=== PATIENT | male | born 1960 | race African-American/Black ===

== ENCOUNTER 2021-10-22 10:58 | Emergency (ER) | payer SELFPAY ==
--- NOTE | ~2021-10-22 | CT_ITS ---
EXAMINATION: CT HEAD WITHOUT CONTRAST CT CERVICAL SPINE WITHOUT CONTRAST CLINICAL INFORMATION: Reason for Exam Neck pain after a fall COMPARISON: None. TECHNIQUE: Imaging was performed from the skull base to vertex without intravenous administration of contrast. In addition, helical noncontrast CT imaging was acquired through the cervical spine and source images were reviewed along with axial reconstructions and sagittal and coronal MPRs. This CT examination was performed using dose optimization techniques as appropriate, variously including the following: *Automated exposure control. *Adjustment of mA and/or kV according to patient size (this includes techniques or standardized protocols for targeted exams where dose is matched to indication/reason for exam; i.e. extremities or head). *Use of iterative reconstruction technique. Total exam dose-length product 654 mGy-cm FINDINGS: HEAD: Linear hypodensity is noted within the inferior basal aspect of the left frontal lobe without evidence of any mass effect, most consistent with encephalomalacia. Please correlate clinically if this patient has a history of remote trauma. There are no prior studies available at the moment for comparison. No intracranial mass, hemorrhage, or midline shift is visualized. The ventricles and sulci are unremarkable. No extra-axial collections are identified. The paranasal sinuses and mastoid air cells are well aerated. CERVICAL SPINE: Specific note is made of right paramedian anterior arch fusion defect (104:11). There is straightening of the cervical spine present with [id number] degenerative spondylosis at C6-C7. Subcentimeter radiolucent lesion is identified within the posterior superior right side of C5 vertebral body, of indeterminate etiology. There is no evidence of acute cervical spine fracture. Vertebral bodies remain normal in height, and alignment is anatomic. No prevertebral or paravertebral soft tissue abnormality is identified. Limited assessment of the lung apices is unremarkable. CT/CT cervical spine wo con IMPRESSION: 1. No acute intracranial pathology. Linear hypodensity within the inferior basal aspect of the left frontal lobe without evidence of any mass effect, most consistent with encephalomalacia. Please correlate clinically if this patient has a history of remote trauma. There are no prior studies available at the moment for comparison. 2. No CT evidence of acute cervical spine fracture or traumatic subluxation.Specific note is made of right paramedian anterior arch fusion defect (104:11). There is straightening of the cervical spine present with [id number] degenerative spondylosis at C6-C7. Subcentimeter radiolucent lesion is identified within the posterior superior right side of C5 vertebral body, of indeterminate etiology. No prior studies available for comparison.
--- NOTE | ~2021-10-22 | CT_ITS ---
EXAMINATION: CT HEAD WITHOUT CONTRAST CT CERVICAL SPINE WITHOUT CONTRAST CLINICAL INFORMATION: Reason for Exam Neck pain after a fall COMPARISON: None. TECHNIQUE: Imaging was performed from the skull base to vertex without intravenous administration of contrast. In addition, helical noncontrast CT imaging was acquired through the cervical spine and source images were reviewed along with axial reconstructions and sagittal and coronal MPRs. This CT examination was performed using dose optimization techniques as appropriate, variously including the following: *Automated exposure control. *Adjustment of mA and/or kV according to patient size (this includes techniques or standardized protocols for targeted exams where dose is matched to indication/reason for exam; i.e. extremities or head). *Use of iterative reconstruction technique. Total exam dose-length product 654 mGy-cm FINDINGS: HEAD: Linear hypodensity is noted within the inferior basal aspect of the left frontal lobe without evidence of any mass effect, most consistent with encephalomalacia. Please correlate clinically if this patient has a history of remote trauma. There are no prior studies available at the moment for comparison. No intracranial mass, hemorrhage, or midline shift is visualized. The ventricles and sulci are unremarkable. No extra-axial collections are identified. The paranasal sinuses and mastoid air cells are well aerated. CERVICAL SPINE: Specific note is made of right paramedian anterior arch fusion defect (104:11). There is straightening of the cervical spine present with [id number] degenerative spondylosis at C6-C7. Subcentimeter radiolucent lesion is identified within the posterior superior right side of C5 vertebral body, of indeterminate etiology. There is no evidence of acute cervical spine fracture. Vertebral bodies remain normal in height, and alignment is anatomic. No prevertebral or paravertebral soft tissue abnormality is identified. Limited assessment of the lung apices is unremarkable. CT/CT head/brain wo con IMPRESSION: 1. No acute intracranial pathology. Linear hypodensity within the inferior basal aspect of the left frontal lobe without evidence of any mass effect, most consistent with encephalomalacia. Please correlate clinically if this patient has a history of remote trauma. There are no prior studies available at the moment for comparison. 2. No CT evidence of acute cervical spine fracture or traumatic subluxation.Specific note is made of right paramedian anterior arch fusion defect (104:11). There is straightening of the cervical spine present with [id number] degenerative spondylosis at C6-C7. Subcentimeter radiolucent lesion is identified within the posterior superior right side of C5 vertebral body, of indeterminate etiology. No prior studies available for comparison.
[2021-10-22 11:17] VITALS: BP 174/91; PULSE 67; RESP 18; TEMP 36.8; O2SAT 99; BMI 42.6
[2021-10-22 12:38] VITALS: BP 155/92; PULSE 57; RESP 18; TEMP 36.8
--- NOTE | 2021-10-22 13:54 | ED_ITS ---
HPI - Fall General Chief Complaint: Fall Stated Complaint: fall/sent from urgent care Time Seen by Provider: 10/22/21 12:00 History of Present Illness HPI Narrative: Patient complains of headache and neck pain and low back pain after a fall on the ice at work on Saturday There is no loss of consciousness, there is no dizziness no weakness no retrograde amnesia no nausea no vomiting no vision changes no numbness weakness or tingling no difficulty with bowel or bladder no difficulty ambulating Related Data Previous Rx's Medication Instructions Recorded naproxen 500 mg tablet (Naprosyn) 500 mg PO BID PRN #14 tab 10/22/21 oxycodone-acetaminophen 5 mg-325 1 tab PO Q6H PRN #10 tab 10/22/21 mg tablet (Percocet) cyclobenzaprine 10 mg tablet 10 mg PO Q8H PRN #14 tab 10/24/21 Allergies Allergy/AdvReac Type Severity Reaction Status Date / Time No Known Allergies Allergy Verified 10/24/21 10:07 [No Known Allergies*] Review of Systems Review of Systems: Positive for headache neck pain and back pain Negatives are no fever no chills no dizziness or weakness no fainting no feeling faint no loss of consciousness no retrograde amnesia no vision change no nausea no vomiting no numbness weakness or tingling no chest pain no shortness of breath no abdominal pain no nausea vomiting or diarrhea no extremity pains Yes all other systems are reviewed and are negative PMFSH Past Medical History Source: nursing notes reviewed Medical History No known health problems Social History Social History Advance Directives: No Advance Directives Information Provided: No Physical Exam Vital Signs: Vital Signs: Last Vital Signs Temp 98.2 F 10/22/21 12:38 Pulse 57 10/22/21 12:38 Resp 18 10/22/21 12:38 BP 155/92 H 10/22/21 12:38 Pulse Ox 99 10/22/21 11:17 BMI result Body Mass Index 42.6 General appearance is no acute distress Head is normocephalic atraumatic Pupils equal round reactive to light extraocular motions are intact Neck has diffuse posterior tenderness and range of motion is somewhat restricted by pain chest is clear to auscultation bilateral, there is no chest wall tend erness Heart no murmur Abdomen soft nontender Extremities full range of motion x4 without swelling or deformity Skin no lacerations The back there is mild paraspinal tenderness bilaterally in the lower back there is no focal bony tenderness, range of motion is full, no CVA tenderness Neuro there is no focal motor or sensory deficits, motor is 5/5 x4, sensation intact and symmetrical, gait and balance are normal, interaction comprehension expression are normal Course Course Course Narrative: Patient with main complaint of headache and neck pain after a fall on the ice at work had CT scan of head and neck which were normal no fractures no bleeds His back pain is likely muscle strain there was no tenderness over any bones any add very good range of motion and he is discharged to follow with [facility] as needed Discharge Plan Discharge Clinical Impression: Neck strain, Concussion, Back strain Patient Disposition: Home, Self-Care Additional Instructions: CT scan of the head and neck did not show any broken bones of the skull or the neck did not show any bleeds no sign of any dangerous new injury Follow with [facility] for further evaluation of work related injury Return to the ER any time any worse condition or any concerns Your blood pressure was elevated in the emergency room so follow with primary doctor for further evaluation for possible high blood pressure It is a good plan to buy a home blood pressure cuff and keep a record to help your doctor decide if you actually have high blood pressure Prescriptions: New oxycodone-acetaminophen [Percocet] 5-325 mg tablet 1 tab PO Q6H PRN (Reason: pain) Qty: 10 0RF Rx Instructions: Narcotic, no driving for 8 hours after taking this medication, may cause drowsiness naproxen [Naprosyn] 500 mg tablet 500 mg PO BID PRN (Reason: pain) Qty: 14 0RF No Action cyclobenzaprine 10 mg tablet 10 mg PO Q8H PRN (Reason: Muscle spasm) Qty: 14 0RF Referrals: [facility] [Provider Group] - 2 days (Follow-up for head neck and back injuries after a fall at work) Stand Alone Forms: Work/School Release Interventions: ED Discharge Assessment Last Done: 10/22/21 14:07 Discharge Date/Time: 10/22/21 14:07
== END 2021-10-22 14:07 | disposition home or self-care (01) ==
PROVIDERS: Emergency Provider Emergency Medicine Emergency Medical Services
DX: S06.0X0A Concussion without loss of consciousness, initial encounter (principal); S16.1XXA Strain of muscle, fascia and tendon at neck level, initial encounter; S39.012A Strain of muscle, fascia and tendon of lower back, initial encounter; W00.0XXA Fall on same level due to ice and snow, initial encounter; Y93.9 Activity, unspecified; Y92.9 Unspecified place or not applicable; Y99.9 Unspecified external cause status; Z79.899 Other long term (current) drug therapy
CPT/HCPCS: 70450; 72125; 99284

== ENCOUNTER 2021-10-24 09:40 | Emergency (ER) | payer SELFPAY ==
--- NOTE | ~2021-10-24 | XR_ITS ---
EXAMINATION: XR HIP, RIGHT CLINICAL INFORMATION: Fall 2 days ago. Hip pain. COMPARISON: None TECHNIQUE: Two views of the right hip and one view of the pelvis. FINDINGS: Bone alignment is normal. No fracture or dislocation is seen. The right hip joint is normal appearing. There is a small soft tissue calcification in the upper medial thigh. Bones of the pelvis and left hip are unremarkable. XR/XR hip RT w PEL1V IMPRESSION: Normal right hip.
--- NOTE | ~2021-10-24 | XR_ITS ---
EXAMINATION: XR LUMBOSACRAL SPINE CLINICAL INFORMATION: Status post fall 2 days ago. Right lower back and hip pain. COMPARISON: None TECHNIQUE: Three views of the lumbosacral spine. FINDINGS: There is normal lumbar lordosis. The vertebral heights, alignment and disc heights are normal. No acute fracture, lytic or sclerotic process seen. Bilateral SI joints are symmetrical and normal. XR/XR lumbar spine 2-3V IMPRESSION: Unremarkable lumbar spine examination.
[2021-10-24 10:09] VITALS: BP 153/98; PULSE 75; RESP 18; TEMP 37.1; O2SAT 98; BMI 38.0
--- NOTE | 2021-10-24 12:43 | ED.BACK ---
HPI - Back Pain/Injury General Chief Complaint: Back Pain/Injury Stated Complaint: sharp pain in lower back Time Seen by Provider: 10/24/21 11:06 Source: patient Mode of arrival: ambulatory Limitations: no limitations History of Present Illness HPI Narrative: 61-year-old male who denies any significant past medical history presenting to the ED with complaints of lower back and right hip pain after he had a mechanical fall on Saturday where he fell on ice at work. He reports that he hit his head although did not lose consciousness and is not on any blood thinners and he was seen here yesterday and had a CT scan of his head and neck which was normal and he initially did not have any lower back pain/right hip pain although he noted yesterday started up and he believes this is from the fall. He denies any paresthesias, hematuria, dysuria, urinary bowel incontinence or retention, rashes, along downtime, history of IV drug use or any other symptoms complaints or concerns at this time. He reports he was given naproxen and oxycodone and is taking as prescribed. MD elicited complaint: back pain, back injury and fall Pertinent past history: recent trauma Onset (ago): day(s) (4) Timing: constant and progressively worsening Severity: moderate Similar Symptoms Previously: No Quality: aching Location: lumbar spine and right lower back Radiation: none Exacerbating factors: movement, supine positioning, sitting upright, walking and lifting Relieving factors: none Context: fall Associated symptoms: denies other symptoms Work related injury: Yes Related Data Previous Rx's Medication Instructions Recorded naproxen 500 mg tablet (Naprosyn) 500 mg PO BID PRN #14 tab 10/22/21 oxycodone-acetaminophen 5 mg-325 1 tab PO Q6H PRN #10 tab 10/22/21 mg tablet (Percocet) cyclobenzaprine 10 mg tablet 10 mg PO Q8H PRN #14 tab 10/24/21 Allergies Allergy/AdvReac Type Severity Reaction Status Date / Time No Known Allergies Allergy Verified 10/24/21 10:07 [No Known Allergies*] Review of Systems Review of Systems: Constitutional : No trauma, No Weight loss, No Fever, No Chills, ENT/Mouth : No Hearing loss, No Ear Pain, No Nasal Congestion, No Sinus Pain, No Hoarseness, No sore throat, No Rhinorrhea, No Swallowing Difficulty Cardiovascular : No Chest Pain, No SOB Respiratory : No Cough, No Dyspnea Gastrointestinal : No Nausea, No Vomiting, No Diarrhea, No abdominal Pain, No Hematochezia, No Melena Genitourinary : No Dysuria, No Urinary Frequency, No Hematuria, No Urinary or Bowel Incontinence/retention Musculoskeletal : + Back pain, + right Hip joint pain, No neck pain, No joint stiffness, No joint swelling Skin : No Skin Lesions, No rash or signs of infection Neuro : No Weakness, No radiation, No Numbness, No Paresthesias, No headache, no loss of bowel or bladder incontinence, no saddle anesthesia, Focal weakness, No radiation Denies history of IV drug usage. Yes all other systems are reviewed and are negative [facility] Past Medical History Attestation statement: The following information was validated with the patient. Medical History No known health problems Social History Social History Advance Directives: No Advance Directives Information Provided: No Physical Exam Vital Signs: Vital Signs: Last Vital Signs Temp 98.7 F 10/24/21 10:09 Pulse 75 10/24/21 10:09 Resp 18 10/24/21 10:09 BP 153/98 H 10/24/21 10:09 Pulse Ox 98 10/24/21 10:09 BMI result Body Mass Index 38.0 vital signs have been reviewed as normal and appeared to be correct. Blood pressure 153/98. Heart rate normal. Respiration rate normal. Temperature normal. Oxygen saturation normal. Appearance: Alert. Oriented X3. No acute distress. Head: Normal external exam. Normocephalic. Atraumatic. No Turner signs noted. No raccoon eyes noted Eyes: PERRLA. EOMI. Conjunctiva and sclera normal. Eyelids normal. ENT: EAC normal. TM's Normal. Pharynx normal. Uvula midline. Moist mucous membranes. No trismus noted. No drooling noted. No muffled voice noted. Neck: Normal inspection. Neck supple. FROM. No adenopathy. Thyroid Normal. No meningeal signs. No neck mass noted. CVS: Normal heart rate and rhythm. Heart sound normal. No murmurs noted. Pulses normal throughout. Respiratory: No respiratory distress. Painless inspiration. Breath sounds normal. No wheezes/rales/rhonchi noted. Chest nontender. No accessory muscle usage noted or decreased air movement noted. Abdomen: Soft and nontender. Bowel sounds normal in all 4 quadrants. No distention noted. No organomegaly noted. No visible injury noted. Back: No CVA tenderness. Full range of motion noted. No obvious deformities, or edema. Mild para-spinal muscular tenderness from lumbar region to coccyx. Full ROM in back and lower extremities. 5/5 strength hip extension/flexion, abduction, adduction. Mild Lumbar pain with hip flexion against resistance. Straight leg raise test negative on right; Straight leg raise test negative on left; Reflexes normal ankle and knee bilaterally; EHL motor strength normal bilaterally. No rashes/lesion/induration/fluctuance or signs infection noted. Skin: Skin warm and dry. Normal skin color. Normal skin turgor. No rashes/lesions/lacerations noted. Extremities: No lower extremity edema. Extremities exhibit normal range of motion. Extremities nontender. Neuro: Oriented X 3. No motor deficit. No sensory deficit. Reflexes normal. Patient has a normal steady gait. Course Course Course Narrative: Pt c likely muscular pain, but could be herniated disc. Neuro exam shows no deficits. Not c/w AAA/epidural abscess/dissection.No high risk Hx (Incont, fever, immunosupp, recent surgery/LP, coag, signif trauma, wt loss, puls mass, hx/o Ca, TB, or IVDU) to warrant MRI/CT today. Not c/w Pyelo/UTI/kidney stone. Not cauda equina syndrome. Although due to patient reporting recent fall/trauma will obtain an x-ray of lumbar spine/right hip if negative will DC home instructions return if any new or worsening symptoms to continue taking his previously prescribed medications as previously prescribed and to follow up with [facility]/PCP and possible referral for physical therapy from [facility] or PCP. Patient understands agrees with this plan. MDM - Back Pain/Injury Medical Records Attestation: I reviewed the patient's medical records. Imaging Data Lumbar spine and right hip x-ray: Attestation: I personally reviewed and interpreted this imaging study as follows: Radiologist's impression: FINDINGS: Bone alignment is normal. No fracture or dislocation is seen. The right hip joint is normal appearing. There is a small soft tissue calcification in the upper medial thigh. Bones of the pelvis and left hip are unremarkable.? XR/XR hip RT w PEL1V IMPRESSION: Normal right hip. FINDINGS: There is normal lumbar lordosis. The vertebral heights, alignment and disc heights are normal. No acute fracture, lytic or sclerotic process seen. Bilateral SI joints are symmetrical and normal. XR/XR lumbar spine 2-3V IMPRESSION: Unremarkable lumbar spine examination. Discharge Plan Discharge Clinical Impression: Fall, Strain of lumbar region, Strain of right hip Patient Disposition: Home, Self-Care Instructions: Muscle Strain (ED), Low Back Strain (ED), Fall Prevention (ED) Prescriptions: New cyclobenzaprine 10 mg tablet 10 mg PO Q8H PRN (Reason: Muscle spasm) Qty: 14 0RF No Action oxycodone-acetaminophen [Percocet] 5-325 mg tablet 1 tab PO Q6H PRN (Reason: pain) Qty: 10 0RF Rx Instructions: Narcotic, no driving for 8 hours after taking this medication, may cause drowsiness naproxen [Naprosyn] 500 mg tablet 500 mg PO BID PRN (Reason: pain) Qty: 14 0RF Referrals: Physician,Unknown J [Primary Care Provider] - 2 days (your pcp) Stand Alone Forms: Work/School Release Print Language: Malay
== END 2021-10-24 14:06 | disposition home or self-care (01) ==
PROVIDERS: Emergency Provider Emergency Medicine
DX: S33.5XXA Sprain of ligaments of lumbar spine, initial encounter (principal); S76.011A Strain of muscle, fascia and tendon of right hip, initial encounter; W00.0XXA Fall on same level due to ice and snow, initial encounter; Y93.9 Activity, unspecified; Y92.9 Unspecified place or not applicable; Y99.0 Civilian activity done for income or pay; Z79.899 Other long term (current) drug therapy
CPT/HCPCS: 72100; 73502; 99283

== ENCOUNTER 2022-03-10 14:25 | Emergency (ER) | payer SELFPAY ==
[2022-03-10 15:20] VITALS: BP 143/70; PULSE 65; RESP 18; TEMP 37.2; O2SAT 97; BMI 39.1
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
== END 2022-03-10 22:16 | disposition home or self-care (01) ==
PROVIDERS: Emergency Provider Emergency Medicine
DX: Z04.1 Encounter for examination and observation following transport accident (principal); M54.9 Dorsalgia, unspecified
CPT/HCPCS: 99282; 99283

== ENCOUNTER 2024-02-24 13:18 | Inpatient (IN) | payer MEDICAID, SELFPAY ==
--- NOTE | ~2024-02-24 | XR_ITS ---
EXAMINATION: XR CHEST CLINICAL INFORMATION: Reason for Exam chest tube placement COMPARISON: Chest radiograph 02/28/2024 TECHNIQUE: One view of the chest FINDINGS: Lines and tubes: Interval placement of a left-sided thoracostomy tube. Interval decrease in a persistent moderate left pleural effusion with similar left basilar consolidation. No pneumothorax. Unchanged cardiomediastinal silhouette. XR/XR chest 1V IMPRESSION: 1. Interval decrease in a persistent moderate left pleural effusion with similar left basilar consolidation. 2. Interval placement of a left-sided thoracostomy tube. No pneumothorax. 3. Unchanged cardiomediastinal silhouette.
--- NOTE | ~2024-02-24 | XR_ITS ---
EXAMINATION: XR CHEST CLINICAL INFORMATION: Status post left thoracentesis. COMPARISON: 02/24/2024 TECHNIQUE: Frontal view of the chest was obtained. FINDINGS: Large left pleural effusion has increased from prior study. There is left basilar consolidation. There is a rounded density within the left upper aerated lung measuring 3.8 cm. The right hemithorax is clear. Cardiac silhouette is obscured. XR/XR chest 1V IMPRESSION: Large left pleural effusion and left basilar consolidation. New rounded density projecting over the left upper lung measuring 3.8 cm. Continued imaging surveillance is advised.
--- NOTE | ~2024-02-24 | XR_ITS ---
EXAMINATION: XR CHEST CLINICAL INFORMATION: Left sided pleural effusion COMPARISON: Chest x-ray February 29, [address] February 28, 2024 TECHNIQUE: Frontal view of the chest was obtained. FINDINGS: Chest tube again noted projecting over the left lung base. Moderate sized left-sided pleural effusion is stable to minimally decreased in volume. There is no gross abnormality of the right lung. No pneumothorax. XR/XR chest 1V IMPRESSION: Moderate left-sided pleural effusion is stable to minimally decreased in volume.
--- NOTE | ~2024-02-24 | US_ITS ---
PROCEDURE: Ultrasound-guided left thoracentesis History: Concern for left parapneumonic effusion. Specimen: A sample of pleural fluid was sent for analysis Access: 5 Brazilian Yueh catheter Medications: 10 mL 1% lidocaine TECHNIQUE/FINDINGS Appropriate preprocedural clinical history and imaging studies were reviewed. The patient was brought to the department and placed in the seated position. Ultrasound images of the left thorax were obtained to localize a small loculated pleural effusion. Permanent ultrasound images were saved. Risks and benefits and possible complications were discussed with the patient and consent form was signed. An area of the patient's left back was prepped and draped in usual sterile fashion. 10 mL of 1% lidocaine was used to obtain local anesthesia of the skin and deeper tissues. A standard small bore needle was introduced to sample pleural fluid and demonstrate a safe access route. A 5 [place] Yueh catheter was then used to access the pleural cavity. 300 ml of jaimie fluid was removed passively. The catheter was then removed. A dressing was applied. A postprocedure chest x-ray will be performed and will be dictated separately. There were no immediate complications. The procedure was performed by Shekhar Rodriguez PA-C and supervised by Dr. Gimenez US/US thoracentesis Impression: Ultrasound-guided left thoracentesis
--- NOTE | ~2024-02-24 | XR_ITS ---
EXAMINATION: XR CHEST CLINICAL INFORMATION: Pain with inspiration COMPARISON: None available. TECHNIQUE: 2 views of the chest were obtained. FINDINGS: There is increased opacity at the left lung base which likely represents a combination of atelectasis, infiltrate and small pleural effusion. There is streaky opacity at the right lung base consistent with atelectasis and/or pneumonia. The cardiac silhouette is obscured by the opacities at both lung bases. No pneumothorax. No acute osseous abnormality. There is also question of dilatation of the small bowel. XR/XR chest 2V IMPRESSION: 1. Bibasilar atelectasis and/or pneumonia, left greater than right. 2. Small left pleural effusion. 3. Question of dilatation of the small bowel.
--- NOTE | ~2024-02-24 | XR_ITS ---
EXAMINATION: XR chest w decubitus CLINICAL INFORMATION: L pleural effusion COMPARISON: Chest radiograph 02/26/2024 TECHNIQUE: PA, lateral and left lateral decubitus views of the chest, 3 images. FINDINGS: Lungs are hypoexpanded. Moderate to large left-sided pleural effusion, not significantly changed from prior. There are associated left lung base hazy opacities. No pulmonary edema pneumothorax. The cardiomediastinal silhouette is obscured by effusion and not well assessed. No acute osseous abnormality. XR/XR chest w decubitus IMPRESSION: Moderate to large left-sided pleural effusion with associated left lung base hazy opacities, not significantly changed from prior.
--- NOTE | ~2024-02-24 | CT_ITS ---
EXAMINATION: CT CHEST WITHOUT AND WITH CONTRAST CLINICAL INFORMATION: Follow-up pleural fluid COMPARISON: CT of chest February 24, 2024. Chest x-ray February 28, 2024 TECHNIQUE: Multidetector volumetric CT imaging of the chest was obtained before and after the administration of 65 mL of Omnipaque 350 intravenous contrast without immediate adverse reactions. Axial MIP volume rendering provided. Sagittal and coronal reformatted images were obtained. This CT examination was performed using dose optimization techniques as appropriate, variously including the following: *Automated exposure control *Adjustment of mA and/or kV according to patient size (this includes techniques or standardized protocols for targeted exams where dose is matched to indication/reason for exam; i.e. extremities or head) *Use of iterative reconstruction technique DLP: 481 mGy-cm FINDINGS: LUNGS: There is persistent dense consolidation with air bronchograms and volume loss in the left mid and lower lung similar prior CAT scan February 24, 2024. Right lung remains normally aerated. MEDIASTINUM: Heart size is normal. No mediastinal mass or significant lymphadenopathy. CORONARY ARTERY CALCIFICATION: None visualized on this study. PLEURA: Persistent moderate volume left pleural effusion which has not substantially changed since the prior CT February 24, 2024. A rounded density noted on the chest x-ray February 26, 2024 over the left upper chest is related to fluid in the left major fissure. No right pleural effusion. AXILLA: No lymphadenopathy. UPPER ABDOMEN: Unremarkable. OSSEOUS STRUCTURES: Unremarkable. CT/CT chest wo/w IV con IMPRESSION: 1. Persistent moderate volume left pleural effusion. No change since CAT scan February 24, 2024. 2. Persistent dense consolidation with air bronchograms and volume loss in the left mid and lower lung similar prior CAT scan February 24, 2024. Fleischner guidelines were followed.
--- NOTE | ~2024-02-24 | XR_ITS ---
EXAMINATION: XR CHEST CLINICAL INFORMATION: Status-post left thoracostomy tube removal. COMPARISON: CT chest and chest radiographs dated 03/02/2024. TECHNIQUE: Frontal view of the chest was obtained. FINDINGS: There is stable mild cardiomegaly. There is persistent left base airspace disease, is a moderate left pleural effusion is seen. There is stable elevation of the left hemidiaphragm. There is very mild right base linear atelectasis. No pneumothorax is seen. There is no acute osseous abnormality. XR/XR chest 1V IMPRESSION: There is left base airspace disease, and a mild to moderate left pleural effusion is seen. There is elevation of the left hemidiaphragm. No pneumothorax is seen status-post left thoracostomy tube removal.
--- NOTE | ~2024-02-24 | CT_ITS ---
EXAMINATION: CT CHEST WITH CONTRAST CLINICAL INFORMATION: Left empyema, status post chest tube placement COMPARISON: 02/28/2024 TECHNIQUE: Multidetector volumetric CT imaging of the chest was obtained after the administration of 65 mL of Omnipaque 350 intravenous contrast without immediate adverse reactions. Axial MIP volume rendering provided. Sagittal and coronal reformatted images were obtained. This CT examination was performed using dose optimization techniques as appropriate, variously including the following: *Automated exposure control *Adjustment of mA and/or kV according to patient size (this includes techniques or standardized protocols for targeted exams where dose is matched to indication/reason for exam; i.e. extremities or head) *Use of iterative reconstruction technique DLP: 234 mGy-cm FINDINGS: LUNGS: Markedly improved aeration seen within the left lower lobe with some mild persistent atelectasis at the lung base. There is persistent air bronchograms within the lingula. The remaining portions of the left upper lobe are well aerated. There is some increased subsegmental atelectasis in the right lower lobe compared to the prior exam. MEDIASTINUM: Heart is normal in size. Pericardium is normal. Small reactive lymph nodes seen within the prevascular space of the mediastinum. PLEURA: Loculated left pleural effusion is markedly decreased in size compared to the prior exam with interval placement of a left-sided chest tube along the anterior left lung base. Minimal residual posterior pleural fluid with scattered foci of air are seen. There is some residual loculated fluid along the left major fissure. Small anterior and apical pneumothorax is seen. AXILLA: No lymphadenopathy. UPPER ABDOMEN: Stable cyst seen within the liver. Liver is diffusely decreased in attenuation consistent with hepatic steatosis. OSSEOUS STRUCTURES: Unremarkable. CT/CT chest w IV con IMPRESSION: 1. Markedly improved aeration of the left lung with some persistent atelectasis in the left lower lobe and consolidation in the lingula. 2. Markedly decreased size of the loculated left pleural effusion with interval placement of a left-sided chest tube. Small residual loculated fluid is seen along the left major fissure. Small anterior and apical pneumothorax is seen.
--- NOTE | ~2024-02-24 | XR_ITS ---
EXAMINATION: XR CHEST CLINICAL INFORMATION: Evaluate fluid volume COMPARISON: Chest x-ray on 03/01/2024 TECHNIQUE: 2 views of the chest were obtained. FINDINGS: The cardiac silhouette is mildly enlarged but stable. There is mild chronic elevation of the right hemidiaphragm. There is some mild bilateral atelectasis, left greater than right. There is a small left pleural effusion. There is a pleural catheter at the left base. Trace left pneumothorax. XR/XR chest 2V IMPRESSION: 1. Mild bilateral atelectasis, left greater than right. 2. Small left pleural effusion. 3. Trace left pneumothorax.
--- NOTE | ~2024-02-24 | CT_ITS ---
EXAMINATION: CT CHEST WITHOUT CONTRAST CLINICAL INFORMATION: Ammonia COMPARISON: Chest x-ray today TECHNIQUE: Multidetector volumetric CT imaging of the chest was done. Axial MIP volume rendering provided. Sagittal and coronal reformatted images were obtained. This CT examination was performed using dose optimization techniques as appropriate, variously including the following: *Automated exposure control *Adjustment of mA and/or kV according to patient size (this includes techniques or standardized protocols for targeted exams where dose is matched to indication/reason for exam; i.e. extremities or head) *Use of iterative reconstruction technique DLP: 521 mGy-cm FINDINGS: LUNGS: Dense consolidation with air bronchograms in the left lower lobe likely reflecting a component of atelectasis and consolidation with a dependent left-sided pleural effusion. Fluid partially extends into the left fissure. Left upper lobe and lingula demonstrates a milder changes more likely reflecting atelectasis. Contralateral right lung demonstrates some minimal dependent atelectatic change. MEDIASTINUM: Mild vascular calcification in aorta. CORONARY ARTERY CALCIFICATION: None visualized on this study. PLEURA: Moderate-sized left pleural effusion without obvious pleural nodularity or thickening AXILLA: No lymphadenopathy. UPPER ABDOMEN: Low-attenuation probable cyst in segment 4 the liver incidentally noted. OSSEOUS STRUCTURES: Unremarkable. CT/CT chest wo IV con IMPRESSION: Dense consolidation in the left lower lobe with air bronchograms likely reflecting a component of atelectasis and consolidation. There is also an associated moderate-sized left-sided pleural effusion. Fleischner guidelines were followed.
[2024-02-24 13:42] VITALS: BP 133/75; PULSE 84; RESP 22; TEMP 37.3; O2SAT 98; BMI 39.2
--- NOTE | 2024-02-24 13:42 | ED.GENADULT ---
HPI - General Adult General Chief complaint: Dyspnea Stated complaint: diff breathing Time Seen by Provider: 02/24/24 19:43 Related Data Home Medications ?Medication ?Instructions ?Recorded ?Confirmed No Known Home Meds 02/24/24 02/24/24 Allergies Allergy/AdvReac Type Severity Reaction Status Date / Time No Known Allergies Allergy Verified 02/24/24 13:43 [No Known Allergies*] [facility] Past Medical History Medical History No known health problems Social History Social History Household Members: None Housing: Apartment Do you presently have visiting nurse or other home services: No Patient Tobacco Use Status: Never used Tobacco service: No Physical Exam ED Vital Signs: BMI result Body Mass Index 39.2 Course Course Course Narrative: RME performed by Alee Springer PA-C. Patient is a 63 year old assigned male at presenting to the emergency department with right rib pain and pain with breathing. Patient states that he woke up with right sided chest pain that is worse with deep breathing. Detailed physical exam and review of systems are deferred to the survey superintendent. EKG, labs, imaging, and swabs ordered. Patient placed back in the waiting room pending room availability and results. This patient was evaluated and dispositioned by Dr. Aguiar. Please see his note from 02/24/2024. Medications Administered Generic Name Dose Route Start Last Admin Trade Name Freq PRN Reason Stop Dose Admin Acetaminophen 650 mg 02/24/24 20:24 02/25/24 03:04 Acetaminophen 325 Mg Tablet PO 650 mg Q6H PRN Administration Pain, Mild (Pain Scale 1-3), fever or headache Enoxaparin Sodium 40 mg 02/24/24 21:00 02/24/24 21:12 Enoxaparin Sodium 40 Mg/0.4 Ml Syringe SUBCUT Not Given Q24H SONNY Ceftriaxone Sodium 1 gm/ 50 mls @ 100 mls/hr 02/24/24 20:30 02/25/24 20:45 Sodium Chloride IV Infused Q24H SONNY Infusion Azithromycin 500 mg/ Sodium 250 mls @ 125 mls/hr 02/24/24 21:00 02/25/24 23:44 Chloride IV Infused Q24H SONNY Infusion Oxycodone HCl 5 mg 02/25/24 07:37 02/26/24 04:21 Oxycodone Hcl Immed Release 5 Mg Tablet PO 5 mg Q4H PRN Administration severe pain Sodium Chloride 3 ml 02/25/24 00:00 02/26/24 07:04 0.9 % Sodium Chloride Flush 3 Ml Syringe IVFLUSH 3 ml QSHIFT SONNY Administration Discontinued Medications Generic Name Dose Route Start Last Admin Trade Name Melisa PRN Reason Stop Dose Admin Acetaminophen 975 mg 02/24/24 19:56 02/24/24 21:07 Acetaminophen 325 Mg Tablet PO 02/24/24 19:57 975 mg ONCE ONE Administration Albuterol/Ipratropium 3 ml 02/25/24 13:34 02/25/24 13:42 Albuterol/Iprat 2.5/0.5mg 3 Ml Ampul.Neb INHALE 02/25/24 13:35 3 ml ONCE ONE Administration Sodium Chloride 1,000 mls @ 999 mls/hr 02/24/24 20:00 02/24/24 22:12 Ns IV 02/24/24 21:00 Infused .Q1H1M SONNY Infusion Ceftriaxone Sodium 1 gm/ 50 mls @ 100 mls/hr 02/24/24 19:55 02/24/24 21:50 Sodium Chloride IV 02/24/24 20:24 Infused ONCE ONE Infusion Azithromycin 500 mg/ Sodium 250 mls @ 125 mls/hr 02/24/24 19:55 02/25/24 00:05 Chloride IV 02/24/24 21:54 Infused ONCE ONE Infusion Ketorolac Tromethamine 15 mg 02/24/24 19:56 02/24/24 21:07 Ketorolac Tromethamine 15 Mg/Ml Vial IVPUSH 02/24/24 19:57 15 mg ONCE ONE Administration Medical Decision Making Lab Data 02/26/24 05:31 02/26/24 05:31 Labs: Lab Results 02/24/24 Range/Units 14:15 WBC 8.9 (4.8-10.8) X10*3/uL RBC 4.91 (4.60-5.80) X10*6/uL Hgb 13.1 L (14.0-18.0) g/dl Hct 39.5 L (42.0-52.0) % MCV 80.4 (80.0-98.0) fL MCH 26.7 L (27.0-33.0) pg MCHC 33.2 (31.0-36.0) g/dl RDW 14.0 (11.0-16.0) % Plt Count 213 (160-400) X10*3/uL MPV 10.8 (9.4-12.4) fL Immature Gran % (Auto) 0.6 H (0.0-0.4) % Neut % (Auto) 69.2 (45-73) % Lymph % (Auto) 12.8 L (20-40) % [place] % (Auto) 11.6 H (2-11) % Eos % (Auto) 5.3 H (0-4) % Baso % (Auto) 0.5 (0-2) % Lymph # (Auto) 1.1 L (1.2-4.9) X10*3/uL [place] # (Auto) 1.0 (0.1-1.2) X10*3/uL Eos # (Auto) 0.5 H (0.0-0.4) X10*3/uL Baso # (Auto) 0.0 (0.0-0.2) X10*3/uL Abs Immat Gran (auto) 0.05 H (0.00-0.03) X10*3/uL Absolute Neuts (auto) 6.1 (2.0-8.3) x10*3/uL Absolute Nucleated RBC 0.000 (0.0-0.012) X10*3/uL Nucleated RBC % (auto) 0.0 (0.0-0.2) /100WBC Sodium 136 (135-145) mmol/L Potassium 3.8 (3.3-5.1) mmol/L Chloride 108 (96-108) mmol/L Carbon Dioxide 22 (22-29) mmol/L Anion Gap 10 L (12-20) BUN 12 (9-16) mg/dL Creatinine 1.09 (0.5-1.4) mg/dL Estim Creat Clear Calc 83.4 Estimated GFR > 60 Random Glucose 125 H (60-115) mg/dL Calcium 9.6 (8.4-10.2) mg/dL Magnesium 2.1 (1.6-2.6) mg/dL Total Bilirubin 0.8 (0.0-1.0) mg/dL AST 29 (5-37) U/L ALT 40 (0-40) U/L Alkaline Phosphatase 76 (39-117) U/L Troponin I High Sens < 2.7 (<3.5-35.0) ng/L Total Protein 8.1 H (6.5-8.0) g/dL Albumin 3.8 (3.5-5.0) g/dL Influenza Type A (PCR) NEGATIVE (Negative) Influenza Type B (PCR) NEGATIVE (Negative) RSV RNA Qual (PCR) NEGATIVE (Negative) SARS-CoV-2 RNA (RT-PCR) NEGATIVE (Negative) Discharge Plan Discharge Clinical Impression: Community acquired pneumonia, Sepsis Patient Disposition: Admitted As Inpatient Interventions: Admission Worksheet (ED) Last Done: 02/25/24 01:01 Discharge Date/Time: 02/25/24 02:58
--- NOTE | 2024-02-24 13:44 | ECG_ITS ---
Test Reason : CP Blood Pressure : / mmHG Vent. Rate : 080 BPM Atrial Rate : 080 BPM P-R Int : 184 ms QRS Dur : 096 ms QT Int : 344 ms P-R-T Axes : 036 -01 028 degrees QTc Int : 396 ms Normal sinus rhythm Possible Left atrial enlargement Nonspecific T wave abnormality Abnormal ECG No previous ECGs available Referred By: Alee Springer Electronically Signed By:CECELIA EDMOND
[2024-02-24 14:22] LABS: MANUAL DIFF FLAG NO
[2024-02-24 14:26] LABS: Basophils Percent Auto 0.5 % (0-2); Eosinophils Absolute Auto 0.5 X10*3/uL (0.0-0.4); Eosinophils Percent Auto 5.3 % (0-4); Hematocrit 39.5 % (42.0-52.0); Hemoglobin 13.1 g/dl (14.0-18.0); Imm Gran Abs Auto 0.05 X10*3/uL (0.00-0.03); Imm Gran Pct Auto 0.6 % (0.0-0.4); Lymphocytes Absolute Auto 1.1 X10*3/uL (1.2-4.9); Lymphocytes Percent Auto 12.8 % (20-40); Mean Corpuscular HGB Conc 33.2 g/dl (31.0-36.0); Mean Corpuscular Hemoglobin 26.7 pg (27.0-33.0); Mean Corpuscular Volume 80.4 fL (80.0-98.0); Mean Platelet Volume 10.8 fL (9.4-12.4); Monocytes Percent Auto 11.6 % (2-11); Neutrophils Absolute Auto 6.1 x10*3/uL (2.0-8.3); Neutrophils Percent Auto 69.2 % (45-73); Platelet Count 213 X10*3/uL (160-400); Red Blood Count 4.91 X10*6/uL (4.60-5.80); White Blood Count 8.9 X10*3/uL (4.8-10.8)
[2024-02-24 14:41] LABS: Alanine Aminotransferase 40 U/L (0-40); Albumin Level 3.8 g/dL (3.5-5.0); Alkaline Phosphatase 76 U/L (39-117); Anion Gap 10 (12-20); Aspartate Amino Transferase 29 U/L (5-37); Bilirubin Total 0.8 mg/dL (0.0-1.0); Blood Urea Nitrogen 12 mg/dL (9-16); Calcium 9.6 mg/dL (8.4-10.2); Carbon Dioxide 22 mmol/L (22-29); Chloride 108 mmol/L (96-108); Creatinine Clr Calc Pharmacy 83.4; Estimated Glomerular Filt Rate > 60; Glucose Random 125 mg/dL (60-115); Magnesium 2.1 mg/dL (1.6-2.6); Potassium 3.8 mmol/L (3.3-5.1); Sodium 136 mmol/L (135-145); Total Protein 8.1 g/dL (6.5-8.0)
[2024-02-24 14:51] LABS: Troponin-I High Sensitivity < 2.7 ng/L (<3.5-35.0)
[2024-02-24 15:04] LABS: Influenza A PCR NEGATIVE (Negative); Influenza B PCR NEGATIVE (Negative); Resp Syncy Virus RNA Qual PCR NEGATIVE (Negative); SARS COV2 PCR INHOUSE NEGATIVE (Negative)
[2024-02-24 17:39] VITALS: BP 120/66; PULSE 87; RESP 16; TEMP 39.2; O2SAT 94
[2024-02-24 19:42] VITALS: PULSE 97; RESP 23
[2024-02-24 19:44] VITALS: BP 146/95; PULSE 100; RESP 20; TEMP 38.4; O2SAT 95
--- NOTE | 2024-02-24 19:45 | ED_ITS ---
HPI - General Adult General Chief complaint: Dyspnea Stated complaint: diff breathing Time Seen by Provider: 02/24/24 19:43 Related Data Previous Rx's ?Medication ?Instructions ?Recorded naproxen 500 mg tablet (Naprosyn) 500 mg PO BID PRN pain #14 tabs 10/22/21 oxycodone-acetaminophen 5 mg-325 1 tab PO Q6H PRN pain #10 tabs 10/22/21 mg tablet (Percocet) cyclobenzaprine 10 mg tablet 10 mg PO Q8H PRN Muscle spasm #14 10/24/21 tabs cyclobenzaprine 10 mg tablet 10 mg PO TID PRN muscle spasm #10 03/10/22 tabs ibuprofen 600 mg tablet 600 mg PO TID PRN pain #20 tabs 03/10/22 Allergies Allergy/AdvReac Type Severity Reaction Status Date / Time No Known Allergies Allergy Verified 02/24/24 13:43 [No Known Allergies*] Review of Systems 2 Review of Systems: ROS as per HPI [facility] Past Medical History Medical History No known health problems Social History Social History Smoked in Last 30 Days: No Use of substances other than those prescribed or required for medical reasons: No Advance Directives: No Advance Directives Information Provided: No Do you have a plan to hurt others: No Plan Physical Exam ED Vital Signs: Vital Signs - 24 hr 02/24/24 13:42 02/24/24 17:39 02/24/24 19:42 Temperature 99.2 F 102.5 F H Pulse Rate 84 87 Pulse Rate [Monitor] 97 Respiratory Rate 22 H 16 23 H Blood Pressure 133/75 120/66 Pulse Oximetry 98 94 Oxygen Delivery Method Room Air Room Air 02/24/24 19:44 Temperature 101.1 F H Pulse Rate 100 Pulse Rate [Monitor] Respiratory Rate 20 Blood Pressure 146/95 H Pulse Oximetry 95 Oxygen Delivery Method Room Air BMI result Body Mass Index 39.2 Gen: NAD, AOx3 HEENT: NCAT, EOMI, normal conjunctiva CV: RRR Pulm: Diminished lung sounds to left posterior lung base, no wheezes, rhonchi or rales, no increased work of breathing GI: Soft, NTND, no rebound, guarding or rigidity Neuro: Grossly non focal Medical Decision Making Differential Diagnosis Differential diagnosis includes, but is not limited to pneumonia, empyema, viral syndrome, myocarditis, acute coronary syndrome, pneumothorax, sepsis. 1999 - I have evaluated patient at the bedside. after initial evaluation of the patient at the bedside and reviewing patient's preliminary labs, imaging and vital signs, patient meets sepsis criteria and sepsis treatment is initiated/blood cultures are obtained. He is hemodynamically stable. For this reason, 30cc/kg IV fluids is not provided. He is provided gentle fluid resuscitation with 1L IV NS. He is notably febrile and complaining of left-sided chest pain. Further, in reviewing his chest x-ray there are radiographic findings concerning for pneumonia versus atelectasis. However, given pleuritic chest pain and fever I suspect this is more likely pneumonia than just atelectasis. For these reasons, patient is provided Toraol, Tylenol, Ceftriaxone and Azithromycin. I believe the diagnosis of community acquired pneumonia is reasonable based on clinical evidence and I will treat it as such. I reviewed and interpreted patient's labs, which are largely non-specific, reassuring and non-contributory without troponin elevation to suggest myocarditis. Patient tests negative for Influenza, COVID-19 and RSV. I reviewed and interpreted EKG, which is unremarkable for any acute findings. Further, there is question of left-sided pleural effusion and given concern for pneumonia with fever we will obtain CT imaging for further evaluation of parapneumonic effusion/empyema. I discussed patient's case he management with admitting hospitalist Dr. Enamorado who is aware of pending CT imaging and agreeable to admission and follow up of CT imaging results/sepsis labs at time of admission. Patient is admitted to the hospitalist service for further work up and management. Admission/Observation Consideration of admission/observation: Escalation of care including admission/observation considered Consult Healthcare Provider Management of the patient was discussed with: Hospitalist Lab Data MDM Lab Attestation statement: I reviewed the patient's lab results. 02/24/24 14:15 02/24/24 14:15 Labs: Lab Results 02/24/24 Range/Units 14:15 WBC 8.9 (4.8-10.8) X10*3/uL RBC 4.91 (4.60-5.80) X10*6/uL Hgb 13.1 L (14.0-18.0) g/dl Hct 39.5 L (42.0-52.0) % MCV 80.4 (80.0-98.0) fL MCH 26.7 L (27.0-33.0) pg MCHC 33.2 (31.0-36.0) g/dl RDW 14.0 (11.0-16.0) % Plt Count 213 (160-400) X10*3/uL MPV 10.8 (9.4-12.4) fL Immature Gran % (Auto) 0.6 H (0.0-0.4) % Neut % (Auto) 69.2 (45-73) % Lymph % (Auto) 12.8 L (20-40) % [place] % (Auto) 11.6 H (2-11) % Eos % (Auto) 5.3 H (0-4) % Baso % (Auto) 0.5 (0-2) % Lymph # (Auto) 1.1 L (1.2-4.9) X10*3/uL [place] # (Auto) 1.0 (0.1-1.2) X10*3/uL Eos # (Auto) 0.5 H (0.0-0.4) X10*3/uL Baso # (Auto) 0.0 (0.0-0.2) X10*3/uL Abs Immat Gran (auto) 0.05 H (0.00-0.03) X10*3/uL Absolute Neuts (auto) 6.1 (2.0-8.3) x10*3/uL Absolute Nucleated RBC 0.000 (0.0-0.012) X10*3/uL Nucleated RBC % (auto) 0.0 (0.0-0.2) /100WBC Sodium 136 (135-145) mmol/L Potassium 3.8 (3.3-5.1) mmol/L Chloride 108 (96-108) mmol/L Carbon Dioxide 22 (22-29) mmol/L Anion Gap 10 L (12-20) BUN 12 (9-16) mg/dL Creatinine 1.09 (0.5-1.4) mg/dL Estim Creat Clear Calc 83.4 Estimated GFR > 60 Random Glucose 125 H (60-115) mg/dL Calcium 9.6 (8.4-10.2) mg/dL Magnesium 2.1 (1.6-2.6) mg/dL Total Bilirubin 0.8 (0.0-1.0) mg/dL AST 29 (5-37) U/L ALT 40 (0-40) U/L Alkaline Phosphatase 76 (39-117) U/L Troponin I High Sens < 2.7 (<3.5-35.0) ng/L Total Protein 8.1 H (6.5-8.0) g/dL Albumin 3.8 (3.5-5.0) g/dL Influenza Type A (PCR) NEGATIVE (Negative) Influenza Type B (PCR) NEGATIVE (Negative) RSV RNA Qual (PCR) NEGATIVE (Negative) SARS-CoV-2 RNA (RT-PCR) NEGATIVE (Negative) Independent Interpretation I performed an independent interpretation of an: EKG Interpretation: EKG shows normal sinus rhythm at 80 beats per minute, IA 184, QRS 96, QTC 396, no STEMI Radiology Impression Discussion of test interpretation with radiology: I have reviewed the radiologist's reading. Radiologist Impression: IMPRESSION: 1. Bibasilar atelectasis and/or pneumonia, left greater than right. 2. Small left pleural effusion. 3. Question of dilatation of the small bowel. Dictated By: Eli Cagle MD Signed By: <Electronically signed by Eli Cagle MD in [place]> 02/24/24 [id number] Discharge Plan Discharge Clinical Impression: Community acquired pneumonia, Sepsis Patient Disposition: Admitted As Inpatient
--- NOTE | 2024-02-24 19:49 | PC.NURSE ---
PT AMBULATED WITH STEADY GAIT TO ED6 FROM . VITALS DOCUMENTED. DR. NUR AT BEDSIDE NOW FOR PRIMARY EVAL. PT IS REPORTING L. SIDED RIB PAIN WORSE WITH INHALATION, PT DENIES FALL REPORTS HAS BEEN COUGHING/SOB. SATS 93% ON RA. LUNG SOUNDS DIMINISHED R LOBE THROUGHOUT, L. LOWER LOBE. L. UPPER LOBE CTA. PT IS FEBRILE REPORTS LAST TOOK ANTIPYRETIC >6 HOURS AGO, MD AWARE. AWAITING FURTHER ORDERS AT THIS TIME.
--- NOTE | 2024-02-24 20:25 | PC.NURSE ---
3 X ATTEMPT FOR IV UNABLE TO ESTABLISH. TILE BURNER AND MD AWARE. ABLE TO OBTAIN 1ST SET OF BLOOD CULTURES AT THIS TIME.
--- NOTE | 2024-02-24 20:25 | PM.IMHP ---
History of Present Illness Date of Service: 02/24/24 Chief Complaint: Chest pain This is a 63-year-old male with no pertinent past medical history and not on prescription medications who presents to the emergency department for evaluation of dyspnea. Patient states his symptoms started 4 days ago. He has been having difficulty breathing which is worse with exertion. Also was having chest discomfort which is worse when he takes a deep breath. Minimal cough. No sick contacts. Also complains of fevers and chills. Patient states he has not on any prescription medications. No surgeries in the past. No orthopnea, PND or leg swelling. No history of blood clots in the past. He has a cdl team truck driver. No nausea, vomiting, palpitations, abdominal pain, changes in urinary or bowel habits. In the emergency department, imaging with left-sided dense consolidation with left-sided pleural effusion. He was found to be septic and initiated on IV antibiotics Review of Systems Constitutional: Constitutional: Reports chills and Reports fever(s) Cardiovascular: Cardiovascular: Reports chest pain and Reports dyspnea Respiratory: Respiratory: Reports dyspnea Gastrointestinal: Gastrointestinal: Reports no additional gastrointestinal complaints Genitourinary: Genitourinary: Reports no additional male genitourinary complaints [facility] Medical History No known health problems Pertinent family history: No family history of early CAD Social History Smoked in Last 30 Days: No Use of substances other than those prescribed or required for medical reasons: No Advance Directives: No Advance Directives Information Provided: No Do you have a plan to hurt others: No Plan Meds Allergies Allergy/AdvReac Type Severity Reaction Status Date / Time No Known Allergies Allergy Verified 02/24/24 13:43 [No Known Allergies*] Active Medications: Current Medications Sodium Chloride (Ns) 1,000 mls @ 999 mls/hr IV .Q1H1M SONNY Stop: 02/24/24 21:00 Azithromycin 500 mg/ Sodium (Chloride) 250 mls @ 125 mls/hr IV ONCE ONE Stop: 02/24/24 21:54 Home Medications ?Medication ?Instructions ?Recorded ?Confirmed ?Last Taken ?Type No Known Home Meds 02/24/24 02/24/24 Unknown History Physical Exam Vital Signs and Narrative: Vital Signs: Last Vital Signs Temp 101.1 F H 02/24/24 19:44 Pulse 100 02/24/24 19:44 Resp 20 02/24/24 19:44 BP 146/95 H 02/24/24 19:44 Pulse Ox 95 02/24/24 19:44 O2 Del Method Room Air 02/24/24 19:44 BMI result Body Mass Index 39.2 Middle-aged male lying in bed in no distress Neck supple, no JVD Tachycardia with regular rhythm, S1-S2 heard Left-sided crackles present Abdomen soft nontender, no guarding, no rigidity Patient is awake, alert and oriented to self, place, time and person ; no focal motor deficit Psych: Normal mood No pedal edema Results Labs 02/24/24 14:15 02/24/24 14:15 Labs: Laboratory Results - last 24 hr 02/24/24 14:15 MCV 80.4 MCH 26.7 L MCHC 33.2 RDW 14.0 Plt Count 213 MPV 10.8 Immature Gran % (Auto) 0.6 H Neut % (Auto) 69.2 Lymph % (Auto) 12.8 L [place] % (Auto) 11.6 H Eos % (Auto) 5.3 H Baso % (Auto) 0.5 Lymph # (Auto) 1.1 L [place] # (Auto) 1.0 Eos # (Auto) 0.5 H Baso # (Auto) 0.0 Abs Immat Gran (auto) 0.05 H Absolute Neuts (auto) 6.1 Absolute Nucleated RBC 0.000 Nucleated RBC % (auto) 0.0 Anion Gap 10 L Estim Creat Clear Calc 83.4 Estimated GFR > 60 Random Glucose 125 H Calcium 9.6 Magnesium 2.1 Total Bilirubin 0.8 AST 29 ALT 40 Alkaline Phosphatase 76 Troponin I High Sens < 2.7 Total Protein 8.1 H Albumin 3.8 Influenza Type A (PCR) NEGATIVE Influenza Type B (PCR) NEGATIVE RSV RNA Qual (PCR) NEGATIVE SARS-CoV-2 RNA (RT-PCR) NEGATIVE Imaging Radiologist's Impressions: Impressions Chest X-Ray 02/24/24 14:28 IMPRESSION: 1. Bibasilar atelectasis and/or pneumonia, left greater than right. 2. Small left pleural effusion. 3. Question of dilatation of the small bowel. Assessment and Plan (1) Sepsis: Status: Acute (2) Community acquired pneumonia: Status: Acute Plan This is a 63-year-old male with no pertinent past medical history and not on prescription medications who presents to the emergency department evaluation of dyspnea. #. Sepsis due to community-acquired pneumonia: Resuscitated with IV crystalloids. Initiating ceftriaxone and azithromycin (start date: 02/23). Lactic acid and blood culture obtained. Also obtaining D-dimer DVT prophylaxis: Lovenox Full code Admit as inpatient and will require two night minimum hospital stay for IV antibiotics (as above), which is not possible in a lesser acute setting. Quality Stroke Does the patient have a stroke diagnosis?: No VTE Prior VTE?: No VTE Risk Level:: Medical - moderate - high VTE Device Contraindication: Treatment Not Indicated VTE Drug Contraindication: N/A - Med Ordered
--- NOTE | 2024-02-24 20:48 | PC.NURSE ---
ANOTHER RN 2X ATTEMPT FOR IV UNABLE TO ESTABLISH. DR. NUR AT BEDSIDE FOR U/S IV.
--- NOTE | 2024-02-24 20:58 | PHA.MEDREC ---
Pharmacy Consult ? Medication Reconciliation Pharmacy has completed the medication reconciliation. Spoke with patient in the ED. He is not taking any medications or OTC meds. Patient states he takes an occasional tylenol if needed.
[2024-02-24 21:02] LABS: Lactic Acid 1.2 mmol/L (0.5-2.0)
[2024-02-24] MEDS: cefTRIAXone sodium 1 GM in 0.9 % Sodium Chloride 50 ML IV (21:07)
[2024-02-24] MEDS: Ketorolac Tromethamine 15 MG/ML VIAL IVPUSH (21:07)
[2024-02-24] MEDS: Acetaminophen 325 MG TABLET 975 MG PO (21:07)
[2024-02-24] MEDS: 0.9 % Sodium Chloride 1,000 ML 999 ML IV (21:08)
--- NOTE | 2024-02-24 21:12 | PC.NURSE ---
ivf and abx infusing per mar. pt medicated per mar for pain/fever. per md hold scheduled abx doses at 2029 and 2100 as this is duplicate order. next scheduled abx dose to be given 02/25/24.
[2024-02-24 21:25] LABS: Alanine Aminotransferase 31 U/L (0-40); Albumin Level 3.9 g/dL (3.5-5.0); Alkaline Phosphatase 78 U/L (39-117); Aspartate Amino Transferase 26 U/L (5-37); Bilirubin Direct 0.4 mg/dL (0.0-0.5); Total Protein 8.5 g/dL (6.5-8.0)
[2024-02-24 21:51] LABS: INTERNATIONAL NORM RATIO 1.2 (0.9-1.1)
[2024-02-24 21:54] LABS: Partial Thromboplastin Time 31.9 SEC (26.0-36.8)
[2024-02-24] MEDS: Azithromycin 500 MG in 0.9 % Sodium Chloride 250 ML 125 MG IV (21:57)
[2024-02-24 22:12] VITALS: BP 130/75; PULSE 105; RESP 26; TEMP 37.4; O2SAT 96
[2024-02-24 23:01] VITALS: BP 117/48; PULSE 90; RESP 20; O2SAT 95
[2024-02-25 02:54] VITALS: BMI 42.1
[2024-02-25] MEDS: Acetaminophen 325 MG TABLET 650 MG PO (03:04)
[2024-02-25 03:10] VITALS: BP 135/86; PULSE 88; RESP 24; TEMP 36.7; O2SAT 96
[2024-02-25 07:09] LABS: MANUAL DIFF FLAG NO
[2024-02-25 07:19] LABS: D Dimer High Sensitivity 461 NG/ML
[2024-02-25 07:21] LABS: Basophils Percent Auto 0.3 % (0-2); Eosinophils Absolute Auto 0.3 X10*3/uL (0.0-0.4); Eosinophils Percent Auto 3.5 % (0-4); Hematocrit 37.2 % (42.0-52.0); Hemoglobin 12.5 g/dl (14.0-18.0); Imm Gran Abs Auto 0.04 X10*3/uL (0.00-0.03); Imm Gran Pct Auto 0.4 % (0.0-0.4); Lymphocytes Absolute Auto 1.3 X10*3/uL (1.2-4.9); Lymphocytes Percent Auto 14.9 % (20-40); Mean Corpuscular HGB Conc 33.6 g/dl (31.0-36.0); Mean Corpuscular Hemoglobin 26.8 pg (27.0-33.0); Mean Corpuscular Volume 79.8 fL (80.0-98.0); Mean Platelet Volume 10.8 fL (9.4-12.4); Monocytes Percent Auto 11.6 % (2-11); Neutrophils Absolute Auto 6.2 x10*3/uL (2.0-8.3); Neutrophils Percent Auto 69.3 % (45-73); Platelet Count 219 X10*3/uL (160-400); Red Blood Count 4.66 X10*6/uL (4.60-5.80)
[2024-02-25 07:25] LABS: Anion Gap 10 (12-20); Blood Urea Nitrogen 13 mg/dL (9-16); Calcium 9.1 mg/dL (8.4-10.2); Carbon Dioxide 24 mmol/L (22-29); Chloride 107 mmol/L (96-108); Creatinine Clr Calc Pharmacy 98.5; Estimated Glomerular Filt Rate > 60; Glucose Random 107 mg/dL (60-115); Potassium 3.8 mmol/L (3.3-5.1); Sodium 137 mmol/L (135-145)
[2024-02-25] MEDS: 0.9 % Sodium Chloride Flush 3 ML SYRINGE IVFLUSH ×3 (07:27→21:41)
[2024-02-25] MEDS: oxyCODONE HCl Immed Release 5 MG TABLET PO ×3 (07:47→20:15)
[2024-02-25 07:53] VITALS: BP 160/95; PULSE 83; RESP 16; TEMP 36.6; O2SAT 95
[2024-02-25 08:38] LABS: Procalcitonin 0.15 ng/mL
--- NOTE | 2024-02-25 09:27 | MHC.CM.PN ---
Patient lives in an apartment alone. Reports he is functionally independent. Denies use of DME or services. No HCP. CM provided education and offered assistance. Patient declined. No PCP or insurance. Referral faxed to financial services. [facility] [place]. Patient will also call [facility] or [facility] for assistance w/ insurance. DP: Goal is home self care. Patient [place] [facility] [place] would like to drive home if appropriate. CM will continue to follow.
--- NOTE | 2024-02-25 11:27 | HO.PM.IMPN ---
Subjective Subjective Date of Service: 02/25/24 Interval History: c/o dyspnea + severe pleuritic L-sided chest pain symptoms started 4 days ago no TB exposure and states tested negative for HIV traveled back [facility] about 1 yr ago no night sweats or weight loss Review of Systems Review of Systems: Yes all other systems are reviewed and are negative Physical Exam Vital Signs: Vital Signs: Last Vital Signs Temp 97.9 F 02/25/24 07:53 Pulse 83 02/25/24 07:53 Resp 16 02/25/24 07:53 BP 160/95 H 02/25/24 07:53 Pulse Ox 95 02/25/24 07:53 O2 Del Method Room Air 02/25/24 07:53 BMI result Body Mass Index 42.1 Gen: in no acute distress HEENT: sclera anicteric, moist mucus membranes Neck: supple, no adenopathy Lungs: decreased air entry L side Heart: regular rate and rhythm, no murmurs Abd: soft, non-tender, non-distended, obese Ext: no edema Skin: warm/well-perfused Neuro: alert and oriented x3, no focal findings Psych: appropriate affect Objective Data Active Medications Acetaminophen (Acetaminophen 325 Mg Tablet) 650 mg PO Q6H PRN PRN Reason: Pain, Mild (Pain Scale 1-3), fever or headache Last Admin: 02/25/24 03:04 Dose: 650 mg Documented By: TAWNYA Calcium Carbonate (Calcium Carbonate 750 Mg Tab.Chew) 750 mg PO Q4H PRN PRN Reason: Heartburn Enoxaparin Sodium (Enoxaparin Sodium 40 Mg/0.4 Ml Syringe) 40 mg SUBCUT Q24H [facility] Last Admin: 02/24/24 21:12 Dose: Not Given Documented By: VARUN Non-Admin Reason: Patient Refused Ceftriaxone Sodium 1 gm/ (Sodium Chloride) 50 mls @ 100 mls/hr IV Q24H [facility] Last Admin: 02/24/24 21:12 Dose: Not Given Documented By: VARUN Non-Admin Reason: Duplicate Order Azithromycin 500 mg/ Sodium (Chloride) 250 mls @ 125 mls/hr IV Q24H [facility] Last Admin: 02/24/24 21:12 Dose: Not Given Documented By: VARUN Non-Admin Reason: Duplicate Order Magnesium Hydroxide (Milk Of Magnesia 30 Ml Oral.Susp) 30 ml PO DAILY PRN PRN Reason: Constipation Melatonin (Melatonin 3 Mg Tablet) 6 mg PO BEDTIME PRN PRN Reason: Insomnia Oxycodone HCl (Oxycodone Hcl Immed Release 5 Mg Tablet) 5 mg PO Q4H PRN PRN Reason: severe pain Last Admin: 02/25/24 07:47 Dose: 5 mg Documented By: BENNIE Sodium Chloride (0.9 % Sodium Chloride Flush 3 Ml Syringe) 3 ml IVFLUSH QSHIFT [facility] Last Admin: 02/25/24 07:27 Dose: 3 ml Documented By: BENNIE Labs 02/25/24 07:03 02/25/24 07:03 Labs: Laboratory Results - last 24 hr 02/24/24 02/24/24 02/25/24 14:15 20:40 07:03 MCV 80.4 79.8 L MCH 26.7 L 26.8 L MCHC 33.2 33.6 RDW 14.0 14.0 Plt Count 213 219 MPV 10.8 10.8 Immature Gran % (Auto) 0.6 H 0.4 Neut % (Auto) 69.2 69.3 Lymph % (Auto) 12.8 L 14.9 L Leslie % (Auto) 11.6 H 11.6 H Eos % (Auto) 5.3 H 3.5 Baso % (Auto) 0.5 0.3 Lymph # (Auto) 1.1 L 1.3 Leslie # (Auto) 1.0 1.0 Eos # (Auto) 0.5 H 0.3 Baso # (Auto) 0.0 0.0 Abs Immat Gran (auto) 0.05 H 0.04 H Absolute Neuts (auto) 6.1 6.2 Absolute Nucleated RBC 0.000 0.000 Nucleated RBC % (auto) 0.0 0.0 PT 14.0 H INR 1.2 H APTT 31.9 D-Dimer High Sensitivty 461 Anion Gap 10 L 10 L Estim Creat Clear Calc 83.4 98.5 Estimated GFR > 60 > 60 Random Glucose 125 H 107 Lactic Acid 1.2 Calcium 9.6 9.1 Magnesium 2.1 Total Bilirubin 0.8 1.0 Direct Bilirubin 0.4 AST 29 26 ALT 40 31 Alkaline Phosphatase 76 78 Troponin I High Sens < 2.7 Total Protein 8.1 H 8.5 H Albumin 3.8 3.9 Procalcitonin 0.15 Hold Yellow Top See Note Influenza Type A (PCR) NEGATIVE Influenza Type B (PCR) NEGATIVE RSV RNA Qual (PCR) NEGATIVE SARS-CoV-2 RNA (RT-PCR) NEGATIVE Impressions Chest X-Ray 02/24/24 14:28 IMPRESSION: 1. Bibasilar atelectasis and/or pneumonia, left greater than right. 2. Small left pleural effusion. 3. Question of dilatation of the small bowel. Chest CT 02/24/24 21:06 IMPRESSION: Dense consolidation in the left lower lobe with air bronchograms likely reflecting a component of atelectasis and consolidation. There is also an associated moderate-sized left-sided pleural effusion. Fleischner guidelines were followed. Assessment and Plan (1) Community acquired pneumonia: Status: Acute (2) Sepsis: Status: Acute Assessment and Plan: d2 63yo M with no chronic conditions presenting with dyspnea + pleuritic chest pain, found to have pneumonia + pleural effusion sepsis from pneumonia with parapneumonic effusino - ceftriaxone + azithromycin started 02/23- - repeat CXR in 2d to ensure pleural effusion is improving; if not, may need drainage - ID consultation - follow BCx - trend PCT - HIV test - MRSA swab - urinary antigens for Legionella and pneumococcus VTE ppx - LMWH dispo - eventual home In my clinical judgment, the patient requires continued inpatient hospitalization for the following reasons: IV ABX, pleural effusion Total time managing care of this patient today: 35 minutes. Quality Stroke Does the patient have a stroke diagnosis?: No VTE Prior VTE?: No VTE Risk Level:: Medical - moderate - high VTE Device Contraindication: Treatment Not Indicated VTE Drug Contraindication: N/A - Med Ordered
[2024-02-25 12:02] LABS: Lactate Dehydrogenase 147 U/L (118-273)
[2024-02-25 13:31] VITALS: PULSE 106; RESP 20; O2SAT 95
[2024-02-25] MEDS: Albuterol/Iprat 2.5/0.5MG 3 ML AMPUL.NEB INHALE (13:42)
[2024-02-25 13:43] VITALS: PULSE 100; RESP 14; O2SAT 96
[2024-02-25 14:12] LABS: MRSA Nasal PCR NEGATIVE (Negative); SA Nasal PCR NEGATIVE (Negative)
[2024-02-25 15:27] VITALS: BP 155/97; PULSE 97; RESP 18; TEMP 36.6
[2024-02-25 19:21] VITALS: BP 141/82; PULSE 96; RESP 18; TEMP 37.1; O2SAT 96
[2024-02-25] MEDS: cefTRIAXone sodium 1 GM in 0.9 % Sodium Chloride 50 ML IV (20:15)
[2024-02-25] MEDS: Azithromycin 500 MG in 0.9 % Sodium Chloride 250 ML 125 MG IV (21:41)
--- NOTE | 2024-02-25 22:56 | P.CNID_ITS ---
History of Present Illness Data of Consult Service Date: 02/25/24 Requesting physician: Kavita King Primary Care Provider: None Physician HPI Reason for consult: LLL pneumonia He presents with shortness of breath and cough for a day. 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 He has no hypoxia at this lydia. He has no travel. His family lives in [place]. He had report he immigrated from [facility] but he says that was 20 years ago and he hasnt been outside [place] since. He denies tuberculosis or HIV . Review of Systems 2 Review of Systems: Yes all other systems are reviewed and are negative Respiratory: Respiratory: Reports no additional respiratory complaints PMFSH Past Medical History Medical History No known health problems Family History Family history: reviewed and not pertinent Social History Social History Household Members: None Housing: Apartment Do you presently have visiting nurse or other home services: No Patient Tobacco Use Status: Never used Tobacco service: No Meds Allergies Allergy/AdvReac Type Severity Reaction Status Date / Time No Known Allergies Allergy Verified 02/24/24 13:43 [No Known Allergies*] Active Medications: Current Medications Acetaminophen (Acetaminophen 325 Mg Tablet) 650 mg PO Q6H PRN PRN Reason: Pain, Mild (Pain Scale 1-3), fever or headache Last Admin: 02/25/24 03:04 Dose: 650 mg Calcium Carbonate (Calcium Carbonate 750 Mg Tab.Chew) 750 mg PO Q4H PRN PRN Reason: Heartburn Enoxaparin Sodium (Enoxaparin Sodium 40 Mg/0.4 Ml Syringe) 40 mg SUBCUT Q24H [facility] Last Admin: 02/24/24 21:12 Dose: Not Given Ceftriaxone Sodium 1 gm/ (Sodium Chloride) 50 mls @ 100 mls/hr IV Q24H [facility] Last Infusion: 02/25/24 20:45 Dose: Infused Azithromycin 500 mg/ Sodium (Chloride) 250 mls @ 125 mls/hr IV Q24H [facility] Last Admin: 02/25/24 21:41 Dose: 125 mls/hr Magnesium Hydroxide (Milk Of Magnesia 30 Ml Oral.Susp) 30 ml PO DAILY PRN PRN Reason: Constipation Melatonin (Melatonin 3 Mg Tablet) 6 mg PO BEDTIME PRN PRN Reason: Insomnia Oxycodone HCl (Oxycodone Hcl Immed Release 5 Mg Tablet) 5 mg PO Q4H PRN PRN Reason: severe pain Last Admin: 02/25/24 20:15 Dose: 5 mg Sodium Chloride (0.9 % Sodium Chloride Flush 3 Ml Syringe) 3 ml IVFLUSH QSHIFT [facility] Last Admin: 02/25/24 21:41 Dose: 3 ml Home Medications ?Medication ?Instructions ?Recorded ?Confirmed ?Last Taken ?Type No Known Home Meds 02/24/24 02/24/24 Unknown History Physical Exam 2 Vital Signs: Vital Signs: Last Vital Signs Temp 98.8 F 02/25/24 19:21 Pulse 96 02/25/24 19:21 Resp 18 02/25/24 19:21 BP 141/82 H 02/25/24 19:21 Pulse Ox 96 02/25/24 19:21 O2 Del Method Room Air 02/25/24 13:31 BMI result Body Mass Index 42.1 Const: General: cooperative HEENT: Head: Yes normal to inspection Face and sinus: Yes normal facial exam Mouth: Normal oral and palatal mucosa present Teeth and gingiva: d entition normal Eyes: General: appearance normal, both eyes and all related structures P upils: Equal, round and reactive pupils present Resp: Effort & Inspection: normal respiratory effort Cardio: Rate: regular rate Rhythm: regular rhythm GI: Palpation (GI): Soft to palpation and nontender : General: Yes no CVA tenderness Back/Spine/Pelvis: Back: no CVA tenderness Skin: General skin exam: no rashes or lesions noted Neuro: General: moves all extremities Cranial nerves: Yes Equal, round and reactive pupils present Extrem: General: Yes normal to inspection Psych: Appearance: grossly normal Results Labs 02/25/24 07:03 02/25/24 07:03 Labs: Short CBC 02/25/24 Range/Units 07:03 WBC 9.0 (4.8-10.8) X10*3/uL Hgb 12.5 L (14.0-18.0) g/dl Hct 37.2 L (42.0-52.0) % Plt Count 219 (160-400) X10*3/uL BMP 02/25/24 07:03 Sodium 137 Potassium 3.8 Chloride 107 Carbon Dioxide 24 BUN 13 Creatinine 0.96 Calcium 9.1 Microbiology Microbiology Results: Microbiology 02/24/24 20:40 Blood - Venous Blood Culture - Preliminary No growth after 24 hours. 02/24/24 20:25 Blood - Venous Blood Culture - Preliminary No growth after 24 hours. Assessment and Plan (1) Sepsis: Status: Acute (2) Community acquired pneumonia: Status: Acute Plan Probable strep pneumonia,Legionella,other atypical causing LLL pneumonia. He has no exposure and denies risk factors. Check HIV test Ceftriaxone and Azithromycin and when better po Ceftin and Zmax Zpack 7-8 d total treatment. Check nares MRSA if not done.
[2024-02-26] MEDS: oxyCODONE HCl Immed Release 5 MG TABLET PO ×4 (00:15→17:41)
--- NOTE | 2024-02-26 01:28 | PC.NURSE ---
Pt desatting to 88% on RA while sleeping, NC placed on 2L, pt now at 96%, Provider made aware.
[2024-02-26 03:44] VITALS: BP 140/86; PULSE 97; RESP 18; TEMP 36.3; O2SAT 95
[2024-02-26 06:59] LABS: Hematocrit 37.3 % (42.0-52.0); Hemoglobin 12.4 g/dl (14.0-18.0); Mean Corpuscular HGB Conc 33.2 g/dl (31.0-36.0); Mean Corpuscular Hemoglobin 26.7 pg (27.0-33.0); Mean Corpuscular Volume 80.4 fL (80.0-98.0); Mean Platelet Volume 11.4 fL (9.4-12.4); Platelet Count 232 X10*3/uL (160-400); Red Blood Count 4.64 X10*6/uL (4.60-5.80); Red Cell Distribution Width 14.1 % (11.0-16.0); White Blood Count 10.8 X10*3/uL (4.8-10.8)
[2024-02-26] MEDS: 0.9 % Sodium Chloride Flush 3 ML SYRINGE IVFLUSH ×3 (07:04→20:00)
[2024-02-26 07:11] LABS: Anion Gap 11 (12-20); Blood Urea Nitrogen 13 mg/dL (9-16); Calcium 9.3 mg/dL (8.4-10.2); Carbon Dioxide 25 mmol/L (22-29); Chloride 104 mmol/L (96-108); Creatinine Clr Calc Pharmacy 89.2; Estimated Glomerular Filt Rate > 60; Glucose Random 106 mg/dL (60-115); Potassium 3.7 mmol/L (3.3-5.1); Sodium 136 mmol/L (135-145)
[2024-02-26 07:37] VITALS: BP 136/69; PULSE 83; RESP 16; TEMP 36.6; O2SAT 97
[2024-02-26 08:05] LABS: HIV AB/AG Nonreactive (Nonreactive); HIV Num 1 0.08 S/CO (0.00-0.99)
[2024-02-26 09:31] LABS: MN% 18.3 %; PMN% 81.7 %; RBC Pleural Fluid 0.013 X10*6/uL; WBC Pleural Fluid 5.869 X10*3/uL
[2024-02-26 09:36] VITALS: BP 135/82; PULSE 87; RESP 18; TEMP 36.4; O2SAT 96
[2024-02-26] MEDS: Lidocaine HCl 1 % 20 ML VIAL 10 ML SUBCUT (09:47)
--- NOTE | 2024-02-26 09:54 | PM.PROC ---
Brief Operative Note Date of procedure: 02/26/24 Pre-op diagnosis: Left pleural effusion, ?parapneumonic Post-op diagnosis: same Procedure: US left thoracentesis Small loculated effusion with basilar consolidation on US. 300 cc jaimie fluid removed and sent for requested studies. No penumothorax on Post CXR. Anesthesia: local
[2024-02-26 10:09] LABS: Eosinophils Pleural Fluid 1 %; Lymphocytes Pleural Fluid 3 %; Neutrophils Pleural Fluid 82 %
[2024-02-26 10:12] LABS: BF Shift QC OK YES; Man Diluent Bkgrd OK YES
[2024-02-26 10:19] LABS: Monocytes Pleural Fluid 3 %; Other Cells Plerual Fl 11 %
--- NOTE | 2024-02-26 10:42 | MHC.CM.PN ---
Per MD rounds patient is not medically cleared for dc. CM will continue to follow.
--- NOTE | 2024-02-26 11:03 | HO.PM.IMPN ---
Subjective Subjective Date of Service: 02/26/24 Interval History: fever resolved dyspnea improved after thoracentesis done Review of Systems Review of Systems: Yes all other systems are reviewed and are negative Physical Exam Vital Signs: Vital Signs: Last Vital Signs Temp 97.5 F 02/26/24 09:36 Pulse 87 02/26/24 09:36 Resp 18 02/26/24 09:36 BP 135/82 02/26/24 09:36 Pulse Ox 96 02/26/24 09:36 O2 Del Method Nasal Cannula 02/26/24 09:36 O2 Flow Rate 2 02/26/24 09:36 BMI result Body Mass Index 42.1 Gen: in no acute distress HEENT: sclera anicteric, moist mucus membranes Neck: supple, no adenopathy Lungs: decreased air entry L side, thoracentesis site dry Heart: regular rate and rhythm, no murmurs Abd: soft, non-tender, non-distended, obese Ext: no edema Skin: warm/well-perfused Neuro: alert and oriented x3, no focal findings Psych: appropriate affect Objective Data Active Medications Acetaminophen (Acetaminophen 325 Mg Tablet) 650 mg PO Q6H PRN PRN Reason: Pain, Mild (Pain Scale 1-3), fever or headache Last Admin: 02/25/24 03:04 Dose: 650 mg Documented By: TAWNYA Calcium Carbonate (Calcium Carbonate 750 Mg Tab.Chew) 750 mg PO Q4H PRN PRN Reason: Heartburn Enoxaparin Sodium (Enoxaparin Sodium 40 Mg/0.4 Ml Syringe) 40 mg SUBCUT Q24H [facility] Last Admin: 02/24/24 21:12 Dose: Not Given Documented By: VARUN Non-Admin Reason: Patient Refused Ceftriaxone Sodium 1 gm/ (Sodium Chloride) 50 mls @ 100 mls/hr IV Q24H [facility] Last Infusion: 02/25/24 20:45 Dose: Infused Documented By: ALEXIA Azithromycin 500 mg/ Sodium (Chloride) 250 mls @ 125 mls/hr IV Q24H [facility] Last Infusion: 02/25/24 23:44 Dose: Infused Documented By: ALEXIA Magnesium Hydroxide (Milk Of Magnesia 30 Ml Oral.Susp) 30 ml PO DAILY PRN PRN Reason: Constipation Melatonin (Melatonin 3 Mg Tablet) 6 mg PO BEDTIME PRN PRN Reason: Insomnia Oxycodone HCl (Oxycodone Hcl Immed Release 5 Mg Tablet) 5 mg PO Q4H PRN PRN Reason: severe pain Last Admin: 02/26/24 04:21 Dose: 5 mg Documented By: EAMON Sodium Chloride (0.9 % Sodium Chloride Flush 3 Ml Syringe) 3 ml IVFLUSH QSHIFT [facility] Last Admin: 02/26/24 07:04 Dose: 3 ml Documented By: BENNIE Labs 02/26/24 05:31 02/26/24 05:31 Labs: Laboratory Results - last 24 hr 02/25/24 02/25/24 02/26/24 07:03 12:17 05:31 MCV 80.4 MCH 26.7 L MCHC 33.2 RDW 14.1 Plt Count 232 MPV 11.4 Absolute Nucleated RBC 0.000 Nucleated RBC % (auto) 0.0 Anion Gap 11 L Estim Creat Clear Calc 89.2 Estimated GFR > 60 Random Glucose 106 Calcium 9.3 Lactate Dehydrogenase 147 Pleural WBC Pleural RBC Pleural Neutrophils Pleural Lymphocytes Pleural Monocytes Pleural Eosinophils Pleural Other Cells Nasal Screen MRSA (PCR) NEGATIVE Nasal S. aureus Screen NEGATIVE Nasal MRSA/S.aureus Interp SEE NOTE HIV 1&2 Ab/P24 Ag 4thGn Nonreactive 02/26/24 08:30 MCV MCH MCHC RDW Plt Count MPV Absolute Nucleated RBC Nucleated RBC % (auto) Anion Gap Estim Creat Clear Calc Estimated GFR Random Glucose Calcium Lactate Dehydrogenase Pleural WBC 5.869 Pleural RBC 0.013 Pleural Neutrophils 82 Pleural Lymphocytes 3 Pleural Monocytes 3 Pleural Eosinophils 1 Pleural Other Cells 11 Nasal Screen MRSA (PCR) Nasal S. aureus Screen Nasal MRSA/S.aureus Interp HIV 1&2 Ab/P24 Ag 4thGn Microbiology Microbiology Results: Microbiology 02/24/24 20:40 Blood Culture - Preliminary Blood - Venous No growth after 24 hours. 02/24/24 20:25 Blood Culture - Preliminary Blood - Venous No growth after 24 hours. Assessment and Plan (1) Community acquired pneumonia: Status: Acute (2) Sepsis: Status: Acute Assessment and Plan: d3 63yo M with no chronic conditions presenting with dyspnea + pleuritic chest pain, found to have pneumonia + pleural effusion sepsis from pneumonia with parapneumonic effusion - ceftriaxone + azithromycin 02/23- - thoracentesis done 02/24; follow fluid studies - ID consulted - follow BCx - trend PCT - HIV negative - MRSA swab negative - urinary antigens for Legionella and pneumococcus pending VTE ppx - LMWH dispo - eventual home In my clinical judgment, the patient requires continued inpatient hospitalization for the following reasons: IV ABX, pleural effusion Total time managing care of this patient today: 35 minutes. Quality Stroke Does the patient have a stroke diagnosis?: No VTE Prior VTE?: No VTE Risk Level:: Medical - moderate - high VTE Device Contraindication: Treatment Not Indicated VTE Drug Contraindication: N/A - Med Ordered
[2024-02-26 15:22] VITALS: BP 136/82; PULSE 83; RESP 18; TEMP 36.5; O2SAT 97
[2024-02-26 19:12] VITALS: BP 117/72; PULSE 96; RESP 18; TEMP 37.1; O2SAT 96
[2024-02-26] MEDS: cefTRIAXone sodium 1 GM in 0.9 % Sodium Chloride 50 ML IV (20:00)
[2024-02-26] MEDS: Azithromycin 500 MG in 0.9 % Sodium Chloride 250 ML 125 MG IV (20:28)
[2024-02-27] MEDS: oxyCODONE HCl Immed Release 5 MG TABLET PO ×3 (00:31→18:34)
[2024-02-27 02:08] VITALS: BP 139/81; RESP 16; TEMP 37.2; O2SAT 95
[2024-02-27 07:07] VITALS: BP 123/69; PULSE 84; RESP 18; TEMP 36.6; O2SAT 97
[2024-02-27] MEDS: 0.9 % Sodium Chloride Flush 3 ML SYRINGE IVFLUSH ×3 (08:51→20:04)
--- NOTE | 2024-02-27 09:36 | P.PNIM_ITS ---
Subjective Subjective Date of Service: 02/27/24 Interval History: c/o L-sided pleuritic chest pain fever resolved no productive cough Review of Systems Review of Systems: Yes all other systems are reviewed and are negative Physical Exam 2 Vital Signs: Vital Signs: Last Vital Signs Temp 98 F 02/27/24 07:07 Pulse 84 02/27/24 07:07 Resp 18 02/27/24 07:07 BP 123/69 02/27/24 07:07 Pulse Ox 97 02/27/24 07:07 O2 Del Method Nasal Cannula 02/27/24 07:07 O2 Flow Rate 2 02/27/24 07:07 BMI result Body Mass Index 42.1 Gen: in no acute distress HEENT: sclera anicteric, moist mucus membranes Neck: supple, no adenopathy Lungs: decreased air entry L base, thoracentesis site dry Heart: regular rate and rhythm, no murmurs Abd: soft, non-tender, non-distended, obese Ext: no edema Skin: warm/well-perfused Neuro: alert and oriented x3, no focal findings Psych: appropriate affect Objective Data Active Medications Acetaminophen (Acetaminophen 325 Mg Tablet) 650 mg PO Q6H PRN PRN Reason: Pain, Mild (Pain Scale 1-3), fever or headache Last Admin: 02/25/24 03:04 Dose: 650 mg Documented By: TAWNYA Calcium Carbonate (Calcium Carbonate 750 Mg Tab.Chew) 750 mg PO Q4H PRN PRN Reason: Heartburn Enoxaparin Sodium (Enoxaparin Sodium 40 Mg/0.4 Ml Syringe) 40 mg SUBCUT Q24H [facility] Last Admin: 02/24/24 21:12 Dose: Not Given Documented By: VARUN Non-Admin Reason: Patient Refused Ceftriaxone Sodium 1 gm/ (Sodium Chloride) 50 mls @ 100 mls/hr IV Q24H [facility] Last Infusion: 02/26/24 20:34 Dose: Infused Documented By: ZARIA Azithromycin 500 mg/ Sodium (Chloride) 250 mls @ 125 mls/hr IV Q24H [facility] Last Infusion: 02/26/24 22:34 Dose: Infused Documented By: ZARIA Lidocaine (Lidocaine 4 % Patch Adh..Patch) 1 patch TRANSDERMA DAILY [facility]; Protocol Magnesium Hydroxide (Milk Of Magnesia 30 Ml Oral.Susp) 30 ml PO DAILY PRN PRN Reason: Constipation Melatonin (Melatonin 3 Mg Tablet) 6 mg PO BEDTIME PRN PRN Reason: Insomnia Oxycodone HCl (Oxycodone Hcl Immed Release 5 Mg Tablet) 5 mg PO Q4H PRN PRN Reason: severe pain Last Admin: 02/27/24 08:59 Dose: 5 mg Documented By: RICH Sodium Chloride (0.9 % Sodium Chloride Flush 3 Ml Syringe) 3 ml IVFLUSH QSHIFT [facility] Last Admin: 02/27/24 08:51 Dose: 3 ml Documented By: RICH Labs 02/26/24 05:31 02/26/24 05:31 Labs: Laboratory Results - last 24 hr 02/26/24 08:30 Pleural WBC 5.869 Pleural RBC 0.013 Pleural Neutrophils 82 Pleural Lymphocytes 3 Pleural Monocytes 3 Pleural Eosinophils 1 Pleural Other Cells 11 Microbiology Microbiology Results: Microbiology 02/26/24 08:30 Gram Stain - Final Thoracentesis Fluid Anaerobic Culture - Preliminary No growth to date. Body Fluid Culture - Preliminary No growth to date. 02/24/24 20:40 Blood Culture - Preliminary Blood - Venous No growth after 48 hours. 02/24/24 20:25 Blood Culture - Preliminary Blood - Venous No growth after 48 hours. Assessment and Plan (1) Community acquired pneumonia: Status: Acute (2) Sepsis: Status: Acute Assessment and Plan: d4 63yo M with no chronic conditions presenting with dyspnea + pleuritic chest pain, found to have pneumonia + pleural effusion sepsis from pneumonia with parapneumonic effusion - ceftriaxone + azithromycin 02/23- - thoracentesis done 02/24 with removal of 375 mL of straw-colored fluid; follow fluid chemistries + culture - ID consulted - BCx negative at 48h - trend PCT - HIV negative - MRSA swab negative - urinary antigens for Legionella and pneumococcus pending - lidocaine patch, APAP, oxycodone for pain - repeat CXR in 2-4 wk VTE ppx - LMWH dispo - eventual home In my clinical judgment, the patient requires continued inpatient hospitalization for the following reasons: IV ABX, pleural effusion Total time managing care of this patient today: 35 minutes. Quality Stroke Does the patient have a stroke diagnosis?: No VTE Prior VTE?: No VTE Risk Level:: Medical - moderate - high VTE Device Contraindication: Treatment Not Indicated VTE Drug Contraindication: N/A - Med Ordered
[2024-02-27] MEDS: Lidocaine 4 % Patch ADH..PATCH 1 PATCH TRANSDERMA (09:44)
[2024-02-27] MEDS: Milk of Magnesia 30 ML ORAL.SUSP PO (13:33)
[2024-02-27 15:09] VITALS: BP 132/67; PULSE 93; RESP 18; TEMP 36.8; O2SAT 93
[2024-02-27 19:36] VITALS: BP 135/73; PULSE 104; RESP 18; TEMP 36.7; O2SAT 96
[2024-02-27] MEDS: cefTRIAXone sodium 1 GM in 0.9 % Sodium Chloride 50 ML IV (20:04)
[2024-02-27] MEDS: Azithromycin 500 MG in 0.9 % Sodium Chloride 250 ML 125 MG IV (20:39)
[2024-02-28 02:59] LABS: Strep Pneumo Ag urine Not Detected (Not Detected)
[2024-02-28 03:39] VITALS: BP 144/72; PULSE 91; RESP 18; TEMP 36.6; O2SAT 98
[2024-02-28 06:33] LABS: Hematocrit 36.2 % (42.0-52.0); Hemoglobin 12.2 g/dl (14.0-18.0); Mean Corpuscular HGB Conc 33.7 g/dl (31.0-36.0); Mean Corpuscular Hemoglobin 26.9 pg (27.0-33.0); Mean Corpuscular Volume 79.9 fL (80.0-98.0); Mean Platelet Volume 10.7 fL (9.4-12.4); Platelet Count 293 X10*3/uL (160-400); Red Blood Count 4.53 X10*6/uL (4.60-5.80); Red Cell Distribution Width 13.8 % (11.0-16.0); White Blood Count 8.8 X10*3/uL (4.8-10.8)
[2024-02-28 06:53] LABS: Anion Gap 14 (12-20); Blood Urea Nitrogen 10 mg/dL (9-16); Calcium 9.6 mg/dL (8.4-10.2); Carbon Dioxide 23 mmol/L (22-29); Chloride 103 mmol/L (96-108); Creatinine Clr Calc Pharmacy 99.5; Estimated Glomerular Filt Rate > 60; Glucose Random 118 mg/dL (60-115); Sodium 136 mmol/L (135-145)
[2024-02-28 07:18] LABS: Procalcitonin 0.09 ng/mL
[2024-02-28 07:41] LABS: Total Protein Pleural Fluid 5.8
[2024-02-28 07:42] LABS: LDH Pleural Fluid 836
[2024-02-28] MEDS: Lidocaine 4 % Patch ADH..PATCH 1 PATCH TRANSDERMA (08:29)
[2024-02-28] MEDS: 0.9 % Sodium Chloride Flush 3 ML SYRINGE IVFLUSH ×3 (08:30→20:58)
[2024-02-28] MEDS: oxyCODONE HCl Immed Release 5 MG TABLET PO ×4 (08:38→20:56)
[2024-02-28] MEDS: Acetaminophen 325 MG TABLET 650 MG PO ×2 (08:40→20:16)
[2024-02-28 09:12] VITALS: BP 132/72; PULSE 90; RESP 18; TEMP 36.1; O2SAT 96
--- NOTE | 2024-02-28 12:03 | P.PNIM_ITS ---
Subjective Subjective Date of Service: 02/28/24 Interval History: feeling better though still having pleuritic chest pain Review of Systems Review of Systems: Yes all other systems are reviewed and are negative Physical Exam 2 Vital Signs: Vital Signs: Last Vital Signs Temp 97 F 02/28/24 09:12 Pulse 90 02/28/24 09:12 Resp 18 02/28/24 09:12 BP 132/72 02/28/24 09:12 Pulse Ox 96 02/28/24 09:12 O2 Del Method Nasal Cannula 02/28/24 09:12 O2 Flow Rate 2 02/28/24 09:12 BMI result Body Mass Index 42.1 Gen: in no acute distress HEENT: sclera anicteric, moist mucus membranes Neck: supple, no adenopathy Lungs: decreased air entry L lower hemithorax, thoracentesis site dry Heart: regular rate and rhythm, no murmurs Abd: soft, non-tender, non-distended, obese Ext: no edema Skin: warm/well-perfused Neuro: alert and oriented x3, no focal findings Psych: appropriate affect Objective Data Active Medications Acetaminophen (Acetaminophen 325 Mg Tablet) 650 mg PO Q6H PRN PRN Reason: Pain, Mild (Pain Scale 1-3), fever or headache Last Admin: 02/28/24 08:40 Dose: 650 mg Documented By: ISHMAEL Calcium Carbonate (Calcium Carbonate 750 Mg Tab.Chew) 750 mg PO Q4H PRN PRN Reason: Heartburn Enoxaparin Sodium (Enoxaparin Sodium 40 Mg/0.4 Ml Syringe) 40 mg SUBCUT Q24H [facility] Last Admin: 02/24/24 21:12 Dose: Not Given Documented By: VARUN Non-Admin Reason: Patient Refused Ceftriaxone Sodium 1 gm/ (Sodium Chloride) 50 mls @ 100 mls/hr IV Q24H [facility] Last Infusion: 02/27/24 20:43 Dose: Infused Documented By: ZARIA Azithromycin 500 mg/ Sodium (Chloride) 250 mls @ 125 mls/hr IV Q24H [facility] Last Infusion: 02/27/24 23:00 Dose: Infused Documented By: ZARIA Lidocaine (Lidocaine 4 % Patch Adh..Patch) 1 patch TRANSDERMA DAILY [facility]; Protocol Last Admin: 02/28/24 08:29 Dose: 1 patch Documented By: ISHMAEL Magnesium Hydroxide (Milk Of Magnesia 30 Ml Oral.Susp) 30 ml PO DAILY PRN PRN Reason: Constipation Last Admin: 02/27/24 13:33 Dose: 30 ml Documented By: RICH Melatonin (Melatonin 3 Mg Tablet) 6 mg PO BEDTIME PRN PRN Reason: Insomnia Oxycodone HCl (Oxycodone Hcl Immed Release 5 Mg Tablet) 5 mg PO Q4H PRN PRN Reason: severe pain Last Admin: 02/28/24 08:38 Dose: 5 mg Documented By: ISHMAEL Sodium Chloride (0.9 % Sodium Chloride Flush 3 Ml Syringe) 3 ml IVFLUSH QSHIFT [facility] Last Admin: 02/28/24 08:30 Dose: 3 ml Documented By: ISHMAEL Labs 02/28/24 05:52 02/28/24 05:52 Labs: Laboratory Results - last 24 hr 02/25/24 02/26/24 02/28/24 Unknown 08:30 05:52 MCV 79.9 L MCH 26.9 L MCHC 33.7 RDW 13.8 Plt Count 293 D MPV 10.7 Absolute Nucleated RBC 0.000 Nucleated RBC % (auto) 0.0 Anion Gap 14 Estim Creat Clear Calc 99.5 Estimated GFR > 60 Random Glucose 118 H Calcium 9.6 Procalcitonin 0.09 Pleural Total Protein 5.8 Pleural LDH 836 Ur Strep pneumoniae Ag Not Detected Microbiology Microbiology Results: Microbiology 02/26/24 08:30 Gram Stain - Final Thoracentesis Fluid Anaerobic Culture - Preliminary No growth to date. Body Fluid Culture - Final No growth after 2 days Assessment and Plan (1) Community acquired pneumonia: Status: Acute (2) Sepsis: Status: Acute Assessment and Plan: d5 63yo M with no chronic conditions presenting with dyspnea + pleuritic chest pain, found to have pneumonia + pleural effusion sepsis from pneumonia with parapneumonic effusion - ceftriaxone + azithromycin 02/23-; ID consulted; HIV negative; MRSA negative; urinary antigen for pneumococcus negative; urinary antigen for Legionella pending - thoracentesis done 02/24 with removal of 375 mL of straw-colored exudative fluid; CXR today shows pleural effusion has reaccumulated and is loculated; discussed with Pulmonology and recommend tube thoracostomy - blood culture + pleural fluid culture negative - lidocaine patch, APAP, oxycodone for pain - will need PCP + outpt imaging f/u upon discharge VTE ppx - LMWH dispo - eventual home In my clinical judgment, the patient requires continued inpatient hospitalization for the following reasons: IV ABX, pleural effusion that requires tube thoracostomy Total time managing care of this patient today: 45 minutes. Quality Stroke Does the patient have a stroke diagnosis?: No VTE Prior VTE?: No VTE Risk Level:: Medical - moderate - high VTE Device Contraindication: Treatment Not Indicated VTE Drug Contraindication: N/A - Med Ordered
--- NOTE | 2024-02-28 12:47 | P.CONPL_ITS ---
History of Present Illness History of Present Illness Consult date: 02/28/24 Chief complaint: Pleuritic chest pain Narrative: 63-year-old gentleman with no underlying medical history admitted on 02/24/2024 with 4 day history of worsening dyspnea, fevers, chills, and left-sided chest pain when raising up from laying down position. On ER evaluation patient with left-sided infiltrate started on empiric antibiotics. CT chest demonstrated left loculated effusion. Patient had thoracentesis on 02/26/2024 showing exudative neutrophil predominant effusion, unfortunately pleural pH and glucose were not checked. His chest x-ray today shows what appears to be a reaccumulation of his previously noted effusion. He continues to require supplemental oxygen at to maintain normal oximetry. Review of Systems 2 Constitutional: Constitutional: Denies daytime sleepiness, Denies excessive sweating, Denies fatigue, Denies fever(s), Denies lethargy, Denies malaise, Denies night sweats, Denies snoring and Denies weight loss Eyes: Eyes: Denies blurry vision and Denies itchy eyes ENT: Denies nasal congestion, Denies post nasal drip, Denies sinus pain, Denies sinus pressure and Denies other ( Thrush) Cardiovascular: Cardiovascular: Denies chest pain, Denies pedal edema, Denies dyspnea, Denies orthopnea and Denies paroxysmal nocturnal dyspnea Respiratory: Respiratory: Reports cough, Denies hemoptysis, Denies excessive phlegm production, Denies dyspnea, Denies snoring and Denies wheezing Gastrointestinal: Gastrointestinal: Denies abdominal pain and Denies heartburn Musculoskeletal: Musculoskeletal: Denies myalgias, Denies arthralgias and Denies joint swelling Integumentary/Breasts: Skin/Breast: Denies rash Neurologic: Denies memory loss and Denies seizure-like activity Psychiatric: Psychiatric: Denies abnormal sleep pattern, Denies anxiety and Denies memory loss Endocrine: Endocrine: Denies excessive sweating, Denies fatigue and Denies heat intolerance Hematologic/Lymphatic: Hematologic/Lymphatic: Denies easy bruising Allergic/Immunologic: Allergic/Immunologic: Denies itchy eyes, Denies seasonal rhinorrhea and Denies wheezing PMFSH Past Medical History Medical History No known health problems Family History Family history: reviewed and not pertinent Social History Social History Household Members: None Housing: Apartment Do you presently have visiting nurse or other home services: No Patient Tobacco Use Status: Never used Tobacco service: No Meds Allergies Allergy/AdvReac Type Severity Reaction Status Date / Time No Known Allergies Allergy Verified 02/24/24 13:43 [No Known Allergies*] Active Medications: Current Medications Acetaminophen (Acetaminophen 325 Mg Tablet) 650 mg PO Q6H PRN PRN Reason: Pain, Mild (Pain Scale 1-3), fever or headache Last Admin: 02/28/24 08:40 Dose: 650 mg Calcium Carbonate (Calcium Carbonate 750 Mg Tab.Chew) 750 mg PO Q4H PRN PRN Reason: Heartburn Enoxaparin Sodium (Enoxaparin Sodium 40 Mg/0.4 Ml Syringe) 40 mg SUBCUT Q24H [facility] 234 BEDS AT THE [facility] Last Admin: 02/24/24 21:12 Dose: Not Given Ceftriaxone Sodium 1 gm/ (Sodium Chloride) 50 mls @ 100 mls/hr IV Q24H [facility] 234 BEDS AT THE [facility] Last Infusion: 02/27/24 20:43 Dose: Infused Azithromycin 500 mg/ Sodium (Chloride) 250 mls @ 125 mls/hr IV Q24H [facility]CLUDE 234 BEDS AT THE [facility] Last Infusion: 02/27/24 23:00 Dose: Infused Lidocaine (Lidocaine 4 % Patch Adh..Patch) 1 patch TRANSDERMA DAILY [facility]CLUDE 234 BEDS AT THE [facility]; Protocol Last Admin: 02/28/24 08:29 Dose: 1 patch Magnesium Hydroxide (Milk Of Magnesia 30 Ml Oral.Susp) 30 ml PO DAILY PRN PRN Reason: Constipation Last Admin: 02/27/24 13:33 Dose: 30 ml Melatonin (Melatonin 3 Mg Tablet) 6 mg PO BEDTIME PRN PRN Reason: Insomnia Oxycodone HCl (Oxycodone Hcl Immed Release 5 Mg Tablet) 5 mg PO Q4H PRN PRN Reason: severe pain Last Admin: 02/28/24 12:05 Dose: 5 mg Sodium Chloride (0.9 % Sodium Chloride Flush 3 Ml Syringe) 3 ml IVFLUSH QSHIFT COUNTS INCLUDE 234 BEDS AT THE [facility] Last Admin: 02/28/24 08:30 Dose: 3 ml Physical Exam 2 Vital Signs: Vital Signs: Last Vital Signs Temp 97 F 02/28/24 09:12 Pulse 90 02/28/24 09:12 Resp 18 02/28/24 09:12 BP 132/72 02/28/24 09:12 Pulse Ox 96 02/28/24 09:12 O2 Del Method Nasal Cannula 02/28/24 09:12 O2 Flow Rate 2 02/28/24 09:12 BMI result Body Mass Index 42.1 Const: General: no acute distress and alert Nutritional Appearance: not obese Orientation/consciousness: Other orientation findings ( oriented) HEENT: Head: Yes atraumatic Eyes: General: appearance normal, both eyes and all related structures S clerae: sclerae normal EOM: EOMs intact bilaterally Neck: Neck: Yes supple Lymphatic: no lymphadenopathy noted Resp: Effort & Inspection: normal respiratory effort and no use of accessory muscles Auscultation: clear to auscultation bilaterally Cardio: Rate: regular rate Rhythm: regular rhythm Heart sounds: no gallops, no murmurs and no rubs Skin: General skin exam: other ( warm) Extrem: General: No clubbing, No cyanosis and No edema Results Laboratory Findings 02/28/24 05:52 02/28/24 05:52 ABG, PT/INR, D-dimer: PT/INR, D-dimer PT 14.0 SEC (11.1-13.3) H 02/24/24 20:40 INR 1.2 (0.9-1.1) H 02/24/24 20:40 Abnormal lab findings: Abnormal Labs 02/24/24 02/24/24 02/25/24 14:15 20:40 07:03 RBC Hgb 13.1 L 12.5 L Hct 39.5 L 37.2 L MCV 79.8 L MCH 26.7 L 26.8 L Immature Gran % (Auto) 0.6 H Lymph % (Auto) 12.8 L 14.9 L [place] % (Auto) 11.6 H 11.6 H Eos % (Auto) 5.3 H Lymph # (Auto) 1.1 L Eos # (Auto) 0.5 H Abs Immat Gran (auto) 0.05 H 0.04 H PT 14.0 H INR 1.2 H Anion Gap 10 L 10 L Random Glucose 125 H Total Protein 8.1 H 8.5 H 02/26/24 02/28/24 05:31 05:52 RBC 4.53 L Hgb 12.4 L 12.2 L Hct 37.3 L 36.2 L MCV 79.9 L MCH 26.7 L 26.9 L Immature Gran % (Auto) Lymph % (Auto) [place] % (Auto) Eos % (Auto) Lymph # (Auto) Eos # (Auto) Abs Immat Gran (auto) PT INR Anion Gap 11 L Random Glucose 118 H Total Protein Microbiology: Microbiology 02/26/24 08:30 Thoracentesis Fluid Gram Stain - Final 02/26/24 08:30 Thoracentesis Fluid Anaerobic Culture - Preliminary No growth to date. 02/26/24 08:30 Thoracentesis Fluid Body Fluid Culture - Final No growth after 2 days 02/24/24 20:40 Blood - Venous Blood Culture - Preliminary No growth after 48 hours. 02/24/24 20:25 Blood - Venous Blood Culture - Preliminary No growth after 48 hours. Assessment and Plan (1) Pleural effusion: Status: Acute (2) Acute respiratory failure with hypoxia: Status: Acute (3) Community acquired pneumonia: Status: Acute Plan Impression: 63-year-old gentleman admitted with dyspnea and acute hypoxic respiratory failure secondary to what appears to be community-acquired pneumonia with parapneumonic effusion versus empyema. Recommendations: Agree with empiric therapy for community-acquired pneumonia. Would suggest repeating CT chest and if effusion reaccumulation is noted, then would consider placement of chest tube for tPA/DNAse or possible decortication. Procedures Date of Service Date of Service: 02/28/24
[2024-02-28] MEDS: iohexoL 350 MG/ML 75 ML INFUS..BTL 65 ML IV (14:05)
[2024-02-28 15:43] VITALS: BP 111/65; PULSE 93; RESP 12; TEMP 36.4; O2SAT 96
[2024-02-28 19:22] VITALS: BP 161/91; PULSE 92; RESP 18; TEMP 36.2; O2SAT 96
[2024-02-28] MEDS: cefTRIAXone sodium 1 GM in 0.9 % Sodium Chloride 50 ML IV (20:13)
[2024-02-28] MEDS: Melatonin 3 MG TABLET 6 MG PO (20:56)
[2024-02-28] MEDS: Azithromycin 500 MG in 0.9 % Sodium Chloride 250 ML 125 MG IV (21:02)
[2024-02-29] VITALS (8 sets, daily range): BP systolic 120–150; BP diastolic 64–90; PULSE 82–95; RESP 16–20; TEMP 36.1–37.1; O2SAT 94–96
[2024-02-29] MEDS: HYDROmorphone HCl 0.5 MG/0.5 ML SYRINGE IVPUSH (08:05)
[2024-02-29] MEDS: Lidocaine 4 % Patch ADH..PATCH 1 PATCH TRANSDERMA (08:06)
[2024-02-29] MEDS: 0.9 % Sodium Chloride Flush 3 ML SYRINGE IVFLUSH ×2 (08:07→15:35)
--- NOTE | 2024-02-29 08:31 | HO.THORCON_ITS ---
History of Present Illness Consult details Consult date: 02/29/24 Narrative: Patient is a relatively healthy 63-year-old male who presented with a left lung lower lobe pneumonia and a significant para pneumonic effusion. He had this tapped/thoracentesis by IR and was to have an IR chest tube placed but this can not be done until Saturday. I was asked to place the chest tube today. Chart was reviewed and patient evaluated. [facility] Past Medical History Medical History No known health problems Family History Family history: reviewed and not pertinent Social History Social History Household Members: None Housing: Apartment Do you presently have visiting nurse or other home services: No Patient Tobacco Use Status: Never used Tobacco service: No Meds Allergies Allergy/AdvReac Type Severity Reaction Status Date / Time No Known Allergies Allergy Verified 02/24/24 13:43 [No Known Allergies*] Active Medications: Current Medications Acetaminophen (Acetaminophen 325 Mg Tablet) 650 mg PO Q6H PRN PRN Reason: Pain, Mild (Pain Scale 1-3), fever or headache Last Admin: 02/28/24 20:16 Dose: 650 mg Calcium Carbonate (Calcium Carbonate 750 Mg Tab.Chew) 750 mg PO Q4H PRN PRN Reason: Heartburn Enoxaparin Sodium (Enoxaparin Sodium 40 Mg/0.4 Ml Syringe) 40 mg SUBCUT Q24H [facility] Last Admin: 02/24/24 21:12 Dose: Not Given Ceftriaxone Sodium 1 gm/ (Sodium Chloride) 50 mls @ 100 mls/hr IV Q24H [facility] Last Infusion: 02/28/24 21:03 Dose: Infused Azithromycin 500 mg/ Sodium (Chloride) 250 mls @ 125 mls/hr IV Q24H [facility] Last Infusion: 02/28/24 23:26 Dose: Infused Lidocaine (Lidocaine 4 % Patch Adh..Patch) 1 patch TRANSDERMA DAILY [facility]; Protocol Last Admin: 02/29/24 08:06 Dose: 1 patch Magnesium Hydroxide (Milk Of Magnesia 30 Ml Oral.Susp) 30 ml PO DAILY PRN PRN Reason: Constipation Last Admin: 02/27/24 13:33 Dose: 30 ml Melatonin (Melatonin 3 Mg Tablet) 6 mg PO BEDTIME PRN PRN Reason: Insomnia Last Admin: 02/28/24 20:56 Dose: 6 mg Oxycodone HCl (Oxycodone Hcl Immed Release 5 Mg Tablet) 5 mg PO Q4H PRN PRN Reason: severe pain Last Admin: 02/28/24 20:56 Dose: 5 mg Sodium Chloride (0.9 % Sodium Chloride Flush 3 Ml Syringe) 3 ml IVFLUSH QSHIFT [facility] Last Admin: 02/29/24 08:07 Dose: 3 ml Physical Exam 2 Vital Signs: Vital Signs: Last Vital Signs Temp 97.8 F 02/29/24 07:21 Pulse 90 02/29/24 07:21 Resp 16 02/29/24 07:21 BP 150/90 H 02/29/24 07:21 Pulse Ox 95 02/29/24 07:21 O2 Del Method Nasal Cannula 02/29/24 07:21 O2 Flow Rate 2 02/29/24 07:21 BMI result Body Mass Index 42.1 Const: Other: Very large muscular male Chest: Other: Chest breath sounds bilaterally, diminished left base Results Labs 02/28/24 05:52 02/28/24 05:52 Labs: All other labs normal. Assessment and Plan (1) Pleural effusion: Status: Acute (2) Parapneumonic effusion: Status: Acute Plan Risks, benefits, and alternatives of chest tube placement/tube thoracostomy placement left side for parapneumonic large effusion reviewed with the patient and included but not limited to bleeding, infection, recurrence, numbness, pain, scarring the patient wished to proceed. All questions answered. After IV premedication, the patient was appropriately positioned, and a left chest was prepped and draped in usual sterile fashion. 1% lidocaine local infiltration was undertaken. Using a transverse incision over the 5th intercostal space over the anterior axillary line, uneventful placement of an angled 32 [place] chest tube was placed. Several 100 cc of serosanguineous fluid were retrieved. Patient already had sampling of fluid through thoracentesis. Sterile dressing applied with Vaseline gauze and secured. Patient tolerated procedure well. Postprocedure x-ray pending. Further interventions and studies will be directed by the patient's clinical course and sequential x-ray scan findings. Procedures Date of Service Date of Service: 02/29/24
--- NOTE | 2024-02-29 09:08 | PC.NURSE ---
Pt tolerated Chest Tube Insertion by MD Leo. Please see MD note and Primary family assessment worker.
[2024-02-29 09:59] LABS: MN% 13.8 %; PMN% 86.2 %; RBC Pleural Fluid 0.101 X10*6/uL; WBC Pleural Fluid 2.185 X10*3/uL
--- NOTE | 2024-02-29 10:02 | P.PNIM_ITS ---
Subjective Subjective Date of Service: 02/29/24 Interval History: chest tube placed this AM by Thoracic Surgery pain controlled, minimal dyspnea, no cough no fever Review of Systems Review of Systems: Yes all other systems are reviewed and are negative Physical Exam 2 Vital Signs: Vital Signs: Last Vital Signs Temp 98 F 02/29/24 09:12 Pulse 86 02/29/24 09:12 Resp 16 02/29/24 07:21 BP 137/88 02/29/24 09:12 Pulse Ox 95 02/29/24 07:21 O2 Del Method Nasal Cannula 02/29/24 07:21 O2 Flow Rate 2 02/29/24 07:21 BMI result Body Mass Index 42.1 Gen: in no acute distress HEENT: sclera anicteric, moist mucus membranes Neck: supple, no adenopathy Lungs: decreased air entry L lower hemithorax, chest tube in place draining serosanguinous fluid Heart: regular rate and rhythm, no murmurs Abd: soft, non-tender, non-distended, obese Ext: no edema Skin: warm/well-perfused Neuro: alert and oriented x3, no focal findings Psych: appropriate affect Objective Data Active Medications Acetaminophen (Acetaminophen 325 Mg Tablet) 650 mg PO Q6H PRN PRN Reason: Pain, Mild (Pain Scale 1-3), fever or headache Last Admin: 02/28/24 20:16 Dose: 650 mg Documented By: LATHA Calcium Carbonate (Calcium Carbonate 750 Mg Tab.Chew) 750 mg PO Q4H PRN PRN Reason: Heartburn Enoxaparin Sodium (Enoxaparin Sodium 40 Mg/0.4 Ml Syringe) 40 mg SUBCUT Q24H [facility] Last Admin: 02/24/24 21:12 Dose: Not Given Documented By: VARUN Non-Admin Reason: Patient Refused Ceftriaxone Sodium 1 gm/ (Sodium Chloride) 50 mls @ 100 mls/hr IV Q24H [facility] Last Infusion: 02/28/24 21:03 Dose: Infused Documented By: LATHA Azithromycin 500 mg/ Sodium (Chloride) 250 mls @ 125 mls/hr IV Q24H [facility] Last Infusion: 02/28/24 23:26 Dose: Infused Documented By: LATHA Alteplase, Recombinant 10 mg/Dornase [place] 5 mg/ Lidocaine HCl 10 ml/ Sodium Chloride 50 mls @ 0 mls/hr INTRAPLEUR BID [facility] Stop: 03/02/24 21:01 Lidocaine (Lidocaine 4 % Patch Adh..Patch) 1 patch TRANSDERMA DAILY [facility]; Protocol Last Admin: 02/29/24 08:06 Dose: 1 patch Documented By: BENNIE Magnesium Hydroxide (Milk Of Magnesia 30 Ml Oral.Susp) 30 ml PO DAILY PRN PRN Reason: Constipation Last Admin: 02/27/24 13:33 Dose: 30 ml Documented By: RICH Melatonin (Melatonin 3 Mg Tablet) 6 mg PO BEDTIME PRN PRN Reason: Insomnia Last Admin: 02/28/24 20:56 Dose: 6 mg Documented By: LATHA Oxycodone HCl (Oxycodone Hcl Immed Release 5 Mg Tablet) 5 mg PO Q4H PRN PRN Reason: severe pain Last Admin: 02/28/24 20:56 Dose: 5 mg Documented By: LATHA Sodium Chloride (0.9 % Sodium Chloride Flush 3 Ml Syringe) 3 ml IVFLUSH QSHIFT [facility] Last Admin: 02/29/24 08:07 Dose: 3 ml Documented By: BENNIE Labs 02/28/24 05:52 02/28/24 05:52 Labs: Laboratory Results - last 24 hr 02/29/24 09:28 Pleural WBC 2.185 Pleural RBC 0.101 Microbiology Microbiology Results: Microbiology 02/26/24 08:30 Gram Stain - Final Thoracentesis Fluid Anaerobic Culture - Preliminary No growth to date. Body Fluid Culture - Final No growth after 2 days Assessment and Plan (1) Community acquired pneumonia: Status: Acute (2) Sepsis: Status: Acute Assessment and Plan: d6 63yo M with no chronic conditions presenting with dyspnea + pleuritic chest pain, found to have pneumonia + loculated pleural effusion sepsis from pneumonia with loculated parapneumonic effusion - ceftriaxone + azithromycin 02/23-; ID consulted; HIV negative; MRSA negative; urinary antigen for pneumococcus negative; urinary antigen for Legionella pending - thoracentesis done 02/24 with removal of 375 mL of straw-colored exudative fluid; CXR 02/27 showed pleural effusion reaccumulated and is loculated; discussed with Pulmonology and recommend tube thoracostomy with chemical decortication - chest tube done 02/28 by Thoracic Surgery; follow repeat fluid studies; intrapleural tPA and DNAse bid 02/28-03/02 to be administered by Pulmonology, but may require surgical decortication - blood culture + pleural fluid culture negative - lidocaine patch, APAP, oxycodone for pain - will need PCP + outpt imaging f/u upon discharge VTE ppx - LMWH dispo - eventual home In my clinical judgment, the patient requires continued inpatient hospitalization for the following reasons: IV ABX, pleural effusion that requires tube thoracostomy Total time managing care of this patient today: 40 minutes. Quality Stroke Does the patient have a stroke diagnosis?: No VTE Prior VTE?: No VTE Risk Level:: Medical - moderate - high VTE Device Contraindication: Treatment Not Indicated VTE Drug Contraindication: N/A - Med Ordered
[2024-02-29] MEDS: oxyCODONE HCl Immed Release 5 MG TABLET PO ×3 (10:17→22:24)
[2024-02-29] MEDS: Acetaminophen 325 MG TABLET 650 MG PO ×3 (10:19→22:23)
[2024-02-29 10:33] LABS: Eosinophils Pleural Fluid 1 %; Lymphocytes Pleural Fluid 16 %; Monocytes Pleural Fluid 1 %; Neutrophils Pleural Fluid 82 %
[2024-02-29 10:34] LABS: BF Shift QC OK YES
--- NOTE | 2024-02-29 11:38 | P.PNPL_ITS ---
Subjective Subjective Date of Service: 02/29/24 Interval history: Now status post left-sided chest tube. Repeat CT demonstrates increasing loculated pleural effusion. Objective Data Labs 02/28/24 05:52 02/28/24 05:52 Labs: Laboratory Results - last 24 hr 02/29/24 09:28 Pleural WBC 2.185 Pleural RBC 0.101 Pleural Neutrophils 82 Pleural Lymphocytes 16 Pleural Monocytes 1 Pleural Eosinophils 1 Microbiology Microbiology Results: Microbiology 02/26/24 08:30 Thoracentesis Fluid Gram Stain - Final 02/26/24 08:30 Thoracentesis Fluid Anaerobic Culture - Preliminary No growth to date. 02/26/24 08:30 Thoracentesis Fluid Body Fluid Culture - Final No growth after 2 days 02/24/24 20:40 Blood - Venous Blood Culture - Preliminary No growth after 48 hours. 02/24/24 20:25 Blood - Venous Blood Culture - Preliminary No growth after 48 hours. Physical Exam 2 Vital Signs: Vital Signs: Last Vital Signs Temp 98 F 02/29/24 09:12 Pulse 86 02/29/24 09:12 Resp 16 02/29/24 07:21 BP 137/88 02/29/24 09:12 Pulse Ox 95 02/29/24 07:21 O2 Del Method Nasal Cannula 02/29/24 07:21 O2 Flow Rate 2 02/29/24 07:21 BMI result Body Mass Index 42.1 Const: General: no acute distress, alert and awake Eyes: Sclerae: sclerae normal EOM: EOMs intact bilaterally Neck: Neck: Yes no lymphadenopathy, Yes trachea midline and Yes supple Resp: Effort & Inspection: normal respiratory effort and no respiratory distress Auscultation: clear to auscultation bilaterally Cardio: Rate: regular rate Rhythm: regular rhythm Heart sounds: no gallops, no murmurs and no rubs GI: Palpation (GI): Soft to palpation and Other GI palpation findings present ( Nontender) Auscultation: normal bowel sounds Extrem: General: Yes no pedal edema, No clubbing and No cyanosis Procedures Date of Service Date of Service: 02/29/24 Assessment and Plan Assessment and plan (1) Loculated pleural effusion: Status: Acute (2) Acute respiratory failure with hypoxia: Status: Acute (3) Community acquired pneumonia: Status: Acute Plan Impression: 63-year-old gentleman with community-acquired pneumonia and parapneumonic loculated effusion now status post chest tube. Recommendations: TPA/DNase for 6 doses, if not resolving, will need decortication. Continue empiric antibiotics. Time Spent With Patient Time: Total time managing care of this patient today ____ minutes. Progress Note: Quality Stroke Does the patient have a stroke diagnosis?: No
[2024-02-29] MEDS: Morphine Sulfate 2 MG/ML CARTRIDGE IVPUSH (13:41)
--- NOTE | 2024-02-29 14:42 | PC.NURSE ---
New Chest Tube in patients room, current output around 1400cc. Primary RN aware.
[2024-02-29] MEDS: Milk of Magnesia 30 ML ORAL.SUSP PO (17:58)
--- NOTE | 2024-02-29 19:33 | PC.NURSE ---
Patient is alert and oriented X4. Patient had chest tube placed to L flank this morning at 0830. Chest tube connected to continuous suctioning. Chest tube site assessed and did not present with any crepitus, tidaling or air leak noted. Dressing to area remains CDI. Emergency supplies at bedside. Pulmonary Provider at bedside to administer lidocaine/aleteplase medication via Chest tube at 11:30 following administration patient had large amount of output in chest tube system. Patient educated on importance of utilizing call li and awaiting staff assistance for transfers. As well as importance of protecting chest tube from being kinked/dislodged. Patient educated on importance of utilizing incentive spirometry. Patient remained of 2L oxygen via N/C and patient lung sounds diminished throughout. Patient was 1 assist for ambulation and transfers. Pain managed with PO and IV medications. Frequent rounding performed throughout shift. Patient with total of 1650cc of output from chest tube this shift and chest tube system changed with evening RN at 1925.
[2024-02-29] MEDS: cefTRIAXone sodium 1 GM in 0.9 % Sodium Chloride 50 ML IV (20:53)
[2024-02-29] MEDS: Azithromycin 500 MG in 0.9 % Sodium Chloride 250 ML 125 MG IV (21:40)
[2024-02-29] MEDS: Alteplase Cath Clear 10 MG, Dornase Alfa 5 MG, Lidocaine HCl 2 % MPF 10 ML in 0.9 % Sod... 50 MG INTRAPLEUR (21:55)
--- NOTE | 2024-02-29 22:38 | W.PM.CCHP ---
Procedures Date of Service Date of Service: 02/29/24 Procedure Note Procedure Note: Pt positioned laterally, left side up. Chest tube clamped, disconnected from the drainage system tubing. Syringe inserted, chest tube unclamped, intrapleural fibrolytics instilled into chest tube over 2 minutes. Clamp reapplied. Chest tube and drainage system tubing reconnected and secured using waterproof tape. Solution left to dwell for 1 hour then clamp removed with return of approximately 50 ml sanguinous fluid into chest tube drainage system. The pt tolerated the procedure well with no complications. Oxycodone administered for pain.?
[2024-02-29] MEDS: Melatonin 3 MG TABLET 6 MG PO (23:36)
[2024-03-01 03:15] VITALS: BP 130/87; PULSE 82; RESP 20; TEMP 36.5; O2SAT 94
[2024-03-01] MEDS: Acetaminophen 325 MG TABLET 650 MG PO ×3 (04:24→22:35)
[2024-03-01] MEDS: oxyCODONE HCl Immed Release 5 MG TABLET PO ×4 (04:24→23:36)
[2024-03-01 05:34] LABS: Legionella Ag Urine Not Detected (Not Detected)
[2024-03-01 07:00] VITALS: BP 129/88; PULSE 81; RESP 17; TEMP 35.5; O2SAT 96
[2024-03-01] MEDS: 0.9 % Sodium Chloride Flush 3 ML SYRINGE IVFLUSH ×3 (07:21→21:26)
[2024-03-01] MEDS: Lidocaine 4 % Patch ADH..PATCH 1 PATCH TRANSDERMA (07:21)
--- NOTE | 2024-03-01 09:06 | P.PNIM_ITS ---
Subjective Subjective Date of Service: 03/01/24 Interval History: pleuritic L chest pain relieved by oxycodone + 1 dose IV morphine no fever/chills Review of Systems Review of Systems: Yes all other systems are reviewed and are negative Physical Exam 2 Vital Signs: Vital Signs: Last Vital Signs Temp 96 F L 03/01/24 07:00 Pulse 81 03/01/24 07:00 Resp 17 03/01/24 07:00 BP 129/88 03/01/24 07:00 Pulse Ox 96 03/01/24 07:00 O2 Del Method Nasal Cannula 03/01/24 07:00 O2 Flow Rate 2 03/01/24 07:00 BMI result Body Mass Index 42.1 Gen: in no acute distress HEENT: sclera anicteric, moist mucus membranes Neck: supple, no adenopathy Lungs: decreased air entry L lower hemithorax, L chest tube to wall suction draining serosanguinous fluid Heart: regular rate and rhythm, no murmurs Abd: soft, non-tender, non-distended, obese Ext: no edema Skin: warm/well-perfused Neuro: alert and oriented x3, no focal findings Psych: appropriate affect Objective Data Active Medications Acetaminophen (Acetaminophen 325 Mg Tablet) 650 mg PO Q6H PRN PRN Reason: Pain, Mild (Pain Scale 1-3), fever or headache Last Admin: 03/01/24 04:24 Dose: 650 mg Documented By: EAMON Comments: per pt requested to take this medication with PRN Oxycodone Calcium Carbonate (Calcium Carbonate 750 Mg Tab.Chew) 750 mg PO Q4H PRN PRN Reason: Heartburn Enoxaparin Sodium (Enoxaparin Sodium 40 Mg/0.4 Ml Syringe) 40 mg SUBCUT Q24H [facility] Last Admin: 02/24/24 21:12 Dose: Not Given Documented By: VARUN Non-Admin Reason: Patient Refused Ceftriaxone Sodium 1 gm/ (Sodium Chloride) 50 mls @ 100 mls/hr IV Q24H [facility] Last Infusion: 02/29/24 21:37 Dose: Infused Documented By: EAMON Azithromycin 500 mg/ Sodium (Chloride) 250 mls @ 125 mls/hr IV Q24H [facility] Last Infusion: 02/29/24 23:48 Dose: Infused Documented By: EAMON Alteplase, Recombinant 10 mg/Dornase [place] 5 mg/ Lidocaine HCl 10 ml/ Sodium Chloride 50 mls @ 0 mls/hr INTRAPLEUR BID [facility] Stop: 03/02/24 21:01 Last Admin: 02/29/24 21:55 Dose: 50 mls/hr Documented By: EAMON Comments: administer by [place] [facility] Lidocaine (Lidocaine 4 % Patch Adh..Patch) 1 patch TRANSDERMA DAILY [facility]; Protocol Last Admin: 03/01/24 07:21 Dose: 1 patch Documented By: BENNIE Magnesium Hydroxide (Milk Of Magnesia 30 Ml Oral.Susp) 30 ml PO DAILY PRN PRN Reason: Constipation Last Admin: 02/29/24 17:58 Dose: 30 ml Documented By: YONATHAN Melatonin (Melatonin 3 Mg Tablet) 6 mg PO BEDTIME PRN PRN Reason: Insomnia Last Admin: 02/29/24 23:36 Dose: 6 mg Documented By: EAMON Morphine Sulfate (Morphine Sulfate 2 Mg/Ml Cartridge) 2 mg IVPUSH Q3H [facility]; Protocol PRN Reason: severe pain Last Admin: 02/29/24 13:41 Dose: 2 mg Documented By: YONATHAN Oxycodone HCl (Oxycodone Hcl Immed Release 5 Mg Tablet) 5 mg PO Q4H PRN PRN Reason: Pain, Moderate(Pain Scale 4-6) Last Admin: 03/01/24 08:24 Dose: 5 mg Documented By: BENNIE Sodium Chloride (0.9 % Sodium Chloride Flush 3 Ml Syringe) 3 ml IVFLUSH QSHIFT [facility] Last Admin: 03/01/24 07:21 Dose: 3 ml Documented By: BENNIE Labs 02/28/24 05:52 02/28/24 05:52 Labs: Laboratory Results - last 24 hr 02/25/24 02/29/24 Unknown 09:28 Pleural WBC 2.185 Pleural RBC 0.101 Pleural Neutrophils 82 Pleural Lymphocytes 16 Pleural Monocytes 1 Pleural Eosinophils 1 Ur L.pneumophila Ag Not Detected Microbiology 02/24/24 20:40 Blood - Venous Blood Culture - Final No growth after 5 days. 02/24/24 20:25 Blood - Venous Blood Culture - Final No growth after 5 days. 02/29/24 09:28 Thoracentesis Fluid Gram Stain - Final 02/26/24 08:30 Thoracentesis Fluid Gram Stain - Final 02/26/24 08:30 Thoracentesis Fluid Anaerobic Culture - Preliminary No growth to date. 02/26/24 08:30 Thoracentesis Fluid Body Fluid Culture - Final No growth after 2 days Microbiology Microbiology Results: Microbiology 02/24/24 20:40 Blood Culture - Final Blood - Venous No growth after 5 days. 02/24/24 20:25 Blood Culture - Final Blood - Venous No growth after 5 days. 02/29/24 09:28 Gram Stain - Final Thoracentesis Fluid 02/26/24 08:30 Gram Stain - Final Thoracentesis Fluid Anaerobic Culture - Preliminary No growth to date. Body Fluid Culture - Final No growth after 2 days Assessment and Plan (1) Community acquired pneumonia: Status: Acute (2) Sepsis: Status: Acute Assessment and Plan: d7 63yo M with no chronic conditions presenting with dyspnea + pleuritic chest pain, found to have pneumonia + loculated pleural effusion sepsis from pneumonia with loculated parapneumonic effusion - ceftriaxone + azithromycin 02/23-; ID consulted; HIV negative; MRSA negative; urinary antigen for pneumococcus + Leginoella negative - thoracentesis done 02/24 with removal of 375 mL of straw-colored exudative fluid; CXR 02/27 showed pleural effusion reaccumulated and is loculated; discussed with Pulmonology, who recommended tube thoracostomy with chemical decortication - chest tube placed 02/28 by Thoracic Surgery; follow pleural fluid chemistries and cultures; intrapleural tPA and DNAse 02/28-03/02 to be administered by Pulmonology bid; if fails to improve, may require surgical decortication - blood culture + initial pleural fluid culture negative - lidocaine patch, APAP, oxycodone, IV morphine for pain - will need PCP + Pulmonology follow-up upon discharge VTE ppx - LMWH dispo - eventual home In my clinical judgment, the patient requires continued inpatient hospitalization for the following reasons: IV ABX, chest tube with chemical decortication Total time managing care of this patient today: 40 minutes. Quality Stroke Does the patient have a stroke diagnosis?: No VTE Prior VTE?: No VTE Risk Level:: Medical - moderate - high VTE Device Contraindication: Treatment Not Indicated VTE Drug Contraindication: N/A - Med Ordered
[2024-03-01] MEDS: Alteplase Cath Clear 10 MG, Dornase Alfa 5 MG, Lidocaine HCl 2 % MPF 10 ML in 0.9 % Sod... 60 MG INTRAPLEUR ×2 (10:11→20:59)
--- NOTE | 2024-03-01 10:46 | P.PNGS_ITS ---
Subjective Subjective Date of Service: 03/01/24 Interval history: feeling ok not having too much pain Physical Exam 2 Vital Signs: Vital Signs: Last Vital Signs Temp 96 F L 03/01/24 07:00 Pulse 81 03/01/24 07:00 Resp 17 03/01/24 07:00 BP 129/88 03/01/24 07:00 Pulse Ox 96 03/01/24 07:00 O2 Del Method Nasal Cannula 03/01/24 07:00 O2 Flow Rate 2 03/01/24 07:00 BMI result Body Mass Index 42.1 Resp: Other: decreased breath sounds on the left pelurovac with serosanguinous fluid - 600 cc since insertion chest tube bandages with some bloody staining Objective Data Active Medications Acetaminophen (Acetaminophen 325 Mg Tablet) 650 mg PO Q6H PRN PRN Reason: Pain, Mild (Pain Scale 1-3), fever or headache Last Admin: 03/01/24 04:24 Dose: 650 mg Documented By: EAMON Comments: per pt requested to take this medication with PRN Oxycodone Calcium Carbonate (Calcium Carbonate 750 Mg Tab.Chew) 750 mg PO Q4H PRN PRN Reason: Heartburn Enoxaparin Sodium (Enoxaparin Sodium 40 Mg/0.4 Ml Syringe) 40 mg SUBCUT Q24H [facility] Last Admin: 02/24/24 21:12 Dose: Not Given Documented By: VARUN Non-Admin Reason: Patient Refused Ceftriaxone Sodium 1 gm/ (Sodium Chloride) 50 mls @ 100 mls/hr IV Q24H [facility] Last Infusion: 02/29/24 21:37 Dose: Infused Documented By: EAMON Azithromycin 500 mg/ Sodium (Chloride) 250 mls @ 125 mls/hr IV Q24H [facility] Last Infusion: 02/29/24 23:48 Dose: Infused Documented By: EAMON Alteplase, Recombinant 10 mg/Dornase [place] 5 mg/ Lidocaine HCl 10 ml/ Sodium Chloride 50 mls @ 0 mls/hr INTRAPLEUR BID [facility] Stop: 03/02/24 21:01 Last Admin: 03/01/24 10:11 Dose: 60 mls/hr Documented By: BENNIE Comments: Given by MD Batista. Lidocaine (Lidocaine 4 % Patch Adh..Patch) 1 patch TRANSDERMA DAILY [facility]; Protocol Last Admin: 03/01/24 07:21 Dose: 1 patch Documented By: BENNIE Magnesium Hydroxide (Milk Of Magnesia 30 Ml Oral.Susp) 30 ml PO DAILY PRN PRN Reason: Constipation Last Admin: 02/29/24 17:58 Dose: 30 ml Documented By: YONATHAN Melatonin (Melatonin 3 Mg Tablet) 6 mg PO BEDTIME PRN PRN Reason: Insomnia Last Admin: 02/29/24 23:36 Dose: 6 mg Documented By: EAMON Morphine Sulfate (Morphine Sulfate 2 Mg/Ml Cartridge) 2 mg IVPUSH Q3H [facility]; Protocol PRN Reason: severe pain Last Admin: 02/29/24 13:41 Dose: 2 mg Documented By: YONATHAN Oxycodone HCl (Oxycodone Hcl Immed Release 5 Mg Tablet) 5 mg PO Q4H PRN PRN Reason: Pain, Moderate(Pain Scale 4-6) Last Admin: 03/01/24 08:24 Dose: 5 mg Documented By: BENNIE Sodium Chloride (0.9 % Sodium Chloride Flush 3 Ml Syringe) [facility] Last Admin: 03/01/24 07:21 Dose: 3 ml Documented By: BENNIE Labs 02/28/24 05:52 02/28/24 05:52 Labs: Laboratory Results - last 24 hr 02/25/24 Unknown Ur L.pneumophila Ag Not Detected Microbiology Microbiology Results: Microbiology 02/24/24 20:40 Blood Culture - Final Blood - Venous No growth after 5 days. 02/24/24 20:25 Blood Culture - Final Blood - Venous No growth after 5 days. 02/29/24 09:28 Gram Stain - Final Thoracentesis Fluid 02/26/24 08:30 Gram Stain - Final Thoracentesis Fluid Anaerobic Culture - Preliminary No growth to date. Body Fluid Culture - Final No growth after 2 days Procedures Date of Service Date of Service: 03/01/24 Progress Note: A&P Assessment and plan (1) Loculated pleural effusion: Status: Acute Assessment and Plan: Pt with left parapneumonic effusion- chest tube in place - no ptx, no air leak - cont to keep on suction and reevaluate outpt tomorrow -600cc+ since inserted Time Spent With Patient Time: Total time managing care of this patient today ____ minutes. Quality Stroke Does the patient have a stroke diagnosis?: No VTE Prior VTE?: No VTE Risk Level:: Medical - moderate - high VTE Device Contraindication: Treatment Not Indicated VTE Drug Contraindication: N/A - Med Ordered
--- NOTE | 2024-03-01 10:54 | P.PNPL_ITS ---
Subjective Subjective Date of Service: 03/01/24 Interval history: Continues with tPA/DNase intrapleural injections. FiO2 requirements are improving. Objective Data Labs 02/28/24 05:52 02/28/24 05:52 Labs: Laboratory Results - last 24 hr 02/25/24 Unknown Ur L.pneumophila Ag Not Detected Microbiology Microbiology Results: Microbiology 02/24/24 20:40 Blood - Venous Blood Culture - Final No growth after 5 days. 02/24/24 20:25 Blood - Venous Blood Culture - Final No growth after 5 days. 02/29/24 09:28 Thoracentesis Fluid Gram Stain - Final 02/26/24 08:30 Thoracentesis Fluid Gram Stain - Final 02/26/24 08:30 Thoracentesis Fluid Anaerobic Culture - Preliminary No growth to date. 02/26/24 08:30 Thoracentesis Fluid Body Fluid Culture - Final No growth after 2 days Physical Exam 2 Vital Signs: Vital Signs: Last Vital Signs Temp 96 F L 03/01/24 07:00 Pulse 81 03/01/24 07:00 Resp 17 03/01/24 07:00 BP 129/88 03/01/24 07:00 Pulse Ox 96 03/01/24 07:00 O2 Del Method Nasal Cannula 03/01/24 07:00 O2 Flow Rate 2 03/01/24 07:00 BMI result Body Mass Index 42.1 Const: General: no acute distress, alert and awake Eyes: Sclerae: sclerae normal EOM: EOMs intact bilaterally Neck: Neck: Yes no lymphadenopathy, Yes trachea midline and Yes supple Resp: Effort & Inspection: normal respiratory effort and no respiratory distress Auscultation: clear to auscultation bilaterally Cardio: Rate: regular rate Rhythm: regular rhythm Heart sounds: no gallops, no murmurs and no rubs GI: Palpation (GI): Soft to palpation and Other GI palpation findings present ( Nontender) Auscultation: normal bowel sounds Extrem: General: Yes no pedal edema, No clubbing and No cyanosis Procedures Date of Service Date of Service: 03/01/24 Assessment and Plan Assessment and plan (1) Loculated pleural effusion: Status: Acute (2) Parapneumonic effusion: Status: Acute (3) Acute respiratory failure with hypoxia: Status: Acute (4) Community acquired pneumonia: Status: Acute Plan Impression: 64-year-old gentleman admitted with community-acquired pneumonia complicated by parapneumonic loculated effusion now status post chest tube. Recommendations: Continue with tPA/DNase for next 24 hours, then reassess with repeat CT chest. Continue empiric antibiotics. Time Spent With Patient Time: Total time managing care of this patient today ____ minutes. Progress Note: Quality Stroke Does the patient have a stroke diagnosis?: No
[2024-03-01 12:00] VITALS: BP 140/101; PULSE 97; RESP 16; TEMP 36.4; O2SAT 97
--- NOTE | 2024-03-01 13:29 | PC.NURSE ---
Pt stating safety agreement for low fall risk, wishes to not have alarms, will ring for staff for ambulation
--- NOTE | 2024-03-01 13:39 | PC.NURSE ---
per MD Rowley, RE SS drainage on dressing, I saw. Just leave it. Looks old. If anything new leaking out then just reinforce.
[2024-03-01 15:36] VITALS: BP 144/89; PULSE 96; RESP 16; TEMP 36.9; O2SAT 96
[2024-03-01 19:15] VITALS: BP 166/94; PULSE 86; RESP 18; TEMP 36.4; O2SAT 96
[2024-03-01] MEDS: cefTRIAXone sodium 1 GM in 0.9 % Sodium Chloride 50 ML IV (19:51)
[2024-03-01] MEDS: Azithromycin 500 MG in 0.9 % Sodium Chloride 250 ML 125 MG IV (21:25)
--- NOTE | 2024-03-01 22:41 | PC.NURSE ---
at 2210 chest tube clamped by FRANSISCO Milian. at 2310 tube unclamped and drained 100 ml pink fluid reported to FRANSISCO Milian working with dr Chew in ICU
[2024-03-01 23:31] VITALS: BP 136/79; PULSE 86; RESP 14; TEMP 36.8; O2SAT 95
[2024-03-01] MEDS: Melatonin 3 MG TABLET 6 MG PO (23:36)
[2024-03-02 03:37] VITALS: BP 131/73; PULSE 81; RESP 16; TEMP 36.4; O2SAT 96
[2024-03-02] MEDS: oxyCODONE HCl Immed Release 5 MG TABLET PO ×4 (06:07→22:12)
[2024-03-02 07:32] VITALS: BP 147/84; PULSE 92; RESP 18; TEMP 36.3; O2SAT 95
[2024-03-02] MEDS: Alteplase Cath Clear 10 MG, Dornase Alfa 5 MG, Lidocaine HCl 2 % MPF 10 ML in 0.9 % Sod... 60 MG INTRAPLEUR (07:32)
[2024-03-02] MEDS: 0.9 % Sodium Chloride Flush 3 ML SYRINGE IVFLUSH ×2 (07:33→17:03)
--- NOTE | 2024-03-02 08:55 | PM.PNTS ---
Subjective Subjective Date of Service: 03/02/24 Interval history: Patient feeling much better. Respiratory symptoms much improved. Patient was sitting up in no respiratory distress. Chest tube serosanguineous output. No air leak Physical Exam Vital Signs: Vital Signs: Last Vital Signs Temp 97.4 F 03/02/24 07:32 Pulse 92 03/02/24 07:32 Resp 18 03/02/24 07:32 BP 147/84 H 03/02/24 07:32 Pulse Ox 95 03/02/24 07:32 O2 Del Method Nasal Cannula 03/02/24 07:32 O2 Flow Rate 2 03/02/24 07:32 BMI result Body Mass Index 42.1 Chest: Other: Chest tube dressing site clean dry and intact Procedures Date of Service Date of Service: 03/02/24 Progress Note: A&P Assessment and plan (1) Loculated pleural effusion: Status: Acute (2) Parapneumonic effusion: Status: Acute (3) Acute respiratory failure with hypoxia: Status: Acute (4) Sepsis: Status: Acute (5) Community acquired pneumonia: Status: Acute Plan Awaiting a.m. chest x-ray. Continued improvement. Continue current plan Time Spent With Patient Time: Total time managing care of this patient today ____ minutes. Quality Stroke Does the patient have a stroke diagnosis?: No VTE Prior VTE?: No VTE Risk Level:: Medical - moderate - high VTE Device Contraindication: Treatment Not Indicated VTE Drug Contraindication: N/A - Med Ordered
[2024-03-02] MEDS: Lidocaine 4 % Patch ADH..PATCH 1 PATCH TRANSDERMA (09:01)
[2024-03-02] MEDS: Acetaminophen 325 MG TABLET 650 MG PO ×3 (10:31→22:13)
--- NOTE | 2024-03-02 10:55 | MHC.CM.PN ---
PER MD ROUNDS, PT IS NOT EXPECTED TO DC TODAY DCP REMAINS HOME WITH NO SERVICES VIA SELF-TRANSPORT
--- NOTE | 2024-03-02 13:47 | P.PNIM_ITS ---
Subjective Subjective Date of Service: 03/02/24 Interval History: Being followed for pneumonia with left para pneumonic effusion. Chest tube clamped this morning, complaining of mild left-sided chest discomfort site of chest tube, denies fever, no chills, no nausea, no vomiting tolerating diet, no acute events overnight. Review of Systems All other system are reviewed and negative Physical Exam 2 Vital Signs: Vital Signs: Last Vital Signs Temp 97.4 F 03/02/24 07:32 Pulse 92 03/02/24 07:32 Resp 18 03/02/24 07:32 BP 147/84 H 03/02/24 07:32 Pulse Ox 95 03/02/24 07:32 O2 Del Method Nasal Cannula 03/02/24 07:32 O2 Flow Rate 2 03/02/24 07:32 BMI result Body Mass Index 42.1 Const: Other: Gen: Awake alert x3, in no acute distress HEENT: sclera anicteric, moist mucus membranes Neck: supple, no adenopathy Lungs: decreased air entry L lower hemithorax, L chest tube clamped, no air leak noted Heart: regular rate and rhythm, no murmurs Abd: soft, non-tender, non-distended, obese Ext: no edema Skin: warm/well-perfused Neuro: alert and oriented x3, no focal findings Psych: appropriate affect Objective Data Active Medications Acetaminophen (Acetaminophen 325 Mg Tablet) 650 mg PO Q6H PRN PRN Reason: Pain, Mild (Pain Scale 1-3), fever or headache Last Admin: 03/02/24 10:31 Dose: 650 mg Documented By: ISHMAEL Calcium Carbonate (Calcium Carbonate 750 Mg Tab.Chew) 750 mg PO Q4H PRN PRN Reason: Heartburn Enoxaparin Sodium (Enoxaparin Sodium 40 Mg/0.4 Ml Syringe) 40 mg SUBCUT Q24H [facility] Last Admin: 02/24/24 21:12 Dose: Not Given Documented By: VARUN Non-Admin Reason: Patient Refused Ceftriaxone Sodium 1 gm/ (Sodium Chloride) 50 mls @ 100 mls/hr IV Q24H [facility] Last Infusion: 03/01/24 20:32 Dose: Infused Documented By: LATHA Azithromycin 500 mg/ Sodium (Chloride) 250 mls @ 125 mls/hr IV Q24H [facility] Last Infusion: 03/01/24 23:34 Dose: Infused Documented By: LATHA Alteplase, Recombinant 10 mg/Dornase [place] 5 mg/ Lidocaine HCl 10 ml/ Sodium Chloride 50 mls @ 0 mls/hr INTRAPLEUR BID [facility] Stop: 03/02/24 21:01 Last Admin: 03/02/24 07:32 Dose: 60 mls/hr Documented By: ISHMAEL Lidocaine (Lidocaine 4 % Patch Adh..Patch) 1 patch TRANSDERMA DAILY [facility]; Protocol Last Admin: 03/02/24 09:01 Dose: 1 patch Documented By: ISHMAEL Magnesium Hydroxide (Milk Of Magnesia 30 Ml Oral.Susp) 30 ml PO DAILY PRN PRN Reason: Constipation Last Admin: 02/29/24 17:58 Dose: 30 ml Documented By: YONATHAN Melatonin (Melatonin 3 Mg Tablet) 6 mg PO BEDTIME PRN PRN Reason: Insomnia Last Admin: 03/01/24 23:36 Dose: 6 mg Documented By: LATHA Morphine Sulfate (Morphine Sulfate 2 Mg/Ml Cartridge) 2 mg IVPUSH Q3H PRN; Protocol PRN Reason: severe pain Last Admin: 02/29/24 13:41 Dose: 2 mg Documented By: YONATHAN Oxycodone HCl (Oxycodone Hcl Immed Release 5 Mg Tablet) 5 mg PO Q4H PRN PRN Reason: Pain, Moderate(Pain Scale 4-6) Last Admin: 03/02/24 10:31 Dose: 5 mg Documented By: ISHMAEL Sodium Chloride (0.9 % Sodium Chloride Flush 3 Ml Syringe) [facility] Last Admin: 03/02/24 07:33 Dose: 3 ml Documented By: ISHMAEL Labs 02/28/24 05:52 02/28/24 05:52 Microbiology Microbiology Results: Microbiology 02/29/24 09:28 Gram Stain - Final Thoracentesis Fluid Anaerobic Culture - Preliminary Culture in progress. Body Fluid Culture - Preliminary Culture in progress. 02/26/24 08:30 Gram Stain - Final Thoracentesis Fluid Anaerobic Culture - Preliminary No growth to date. Body Fluid Culture - Final No growth after 2 days Assessment and Plan (1) Community acquired pneumonia: Status: Acute (2) Sepsis: Status: Acute Assessment and Plan: 63yo M with no chronic conditions presenting with dyspnea + pleuritic chest pain, found to have pneumonia + loculated pleural effusion Sepsis from pneumonia with loculated parapneumonic effusion -no recurrent fevers, normal WBC -continue IV ceftriaxone + azithromycin started on 02/23, HIV negative; MRSA negative; urinary antigen for pneumococcus + Leginoella negative - thoracentesis done 02/24 with removal of 375 mL of straw-colored exudative fluid; CXR 02/27 showed pleural effusion reaccumulated and is loculated; Pulmonology, recommended chest tube with chemical decortication - chest tube placed 02/28 by Thoracic Surgery, intrapleural tPA and DNAse 02/28-03/02 to be administered by Pulmonology bid; if fails to improve, may require surgical decortication, chest x-ray from 03/01 showed moderate left-sided pleural effusion is stable to minimally decreased in volume, repeat chest x- ray pending. - blood culture + initial pleural fluid culture negative, repeat pleural fluid chemistry pending, culture in progress, cytology pending - continue lidocaine patch, Tylenol, oxycodone, IV morphine for pain - will need PCP + Pulmonology follow-up upon discharge VTE ppx - LMWH dispo - eventual home In my clinical judgment, the patient requires continued inpatient hospitalization for the following reasons: IV ABX, chest tube with chemical decortication Total time managing care of this patient today: 40 minutes. Quality Stroke Does the patient have a stroke diagnosis?: No VTE Prior VTE?: No VTE Risk Level:: Medical - moderate - high VTE Device Contraindication: Treatment Not Indicated VTE Drug Contraindication: N/A - Med Ordered
[2024-03-02] MEDS: iohexoL 350 MG/ML 100 ML INFUS..BTL 65 ML IV (14:51)
[2024-03-02 15:15] VITALS: BP 120/78; PULSE 91; RESP 18; TEMP 36.3; O2SAT 96
[2024-03-02 19:15] VITALS: BP 138/89; PULSE 87; RESP 14; TEMP 36.1; O2SAT 96
[2024-03-02] MEDS: cefTRIAXone sodium 1 GM in 0.9 % Sodium Chloride 50 ML IV (21:54)
[2024-03-02] MEDS: Alteplase Cath Clear 10 MG, Dornase Alfa 5 MG, Lidocaine HCl 2 % MPF 10 ML in 0.9 % Sod... 50 MG INTRAPLEUR (21:57)
--- NOTE | 2024-03-02 22:13 | PM.EVENT ---
Documented by User: Maicol Sutherland NP 03/02/24 22:14 Event Note Date of Service: 03/02/24 Event Note: Dose / of tPA/DNase administered Man crow[place] repeat CT chest tomorrow Time Spent With Patient Time: Total time managing care of this patient today ____ minutes. Documented by User: Antonio Batista MD 03/03/24 09:58 Event Note Date of Service: 03/03/24
[2024-03-02] MEDS: Azithromycin 500 MG in 0.9 % Sodium Chloride 250 ML 125 MG IV (22:30)
[2024-03-02 23:15] VITALS: BP 139/91; PULSE 87; RESP 16; TEMP 36.6; O2SAT 96
--- NOTE | 2024-03-02 23:29 | MHC.PIE ---
2200 p; pt c/o pain 03/04 asking for Tylenol and oxy 5 mg together. note; tylenol and oxy ordered for 4-7 pain, tylenol ordered q6 note due till 2300. i; LITA gaviria in room. ok to give early dose. e; will cont to monitor
[2024-03-03] MEDS: 0.9 % Sodium Chloride Flush 3 ML SYRINGE IVFLUSH ×4 (00:37→21:36)
[2024-03-03 02:17] VITALS: BP 139/78; PULSE 78; RESP 16; TEMP 36; O2SAT 95
[2024-03-03] MEDS: Acetaminophen 325 MG TABLET 650 MG PO ×4 (03:45→23:31)
[2024-03-03] MEDS: oxyCODONE HCl Immed Release 5 MG TABLET PO ×4 (03:47→23:32)
[2024-03-03 06:57] LABS: Anion Gap 11 (12-20); Blood Urea Nitrogen 11 mg/dL (9-16); Calcium 9.3 mg/dL (8.4-10.2); Carbon Dioxide 28 mmol/L (22-29); Chloride 100 mmol/L (96-108); Estimated Glomerular Filt Rate > 60; Glucose Random 108 mg/dL (60-115); Potassium 4.1 mmol/L (3.3-5.1); Sodium 135 mmol/L (135-145)
[2024-03-03 08:00] VITALS: BP 121/80; PULSE 80; RESP 20; TEMP 36.2; O2SAT 93
[2024-03-03] MEDS: Lidocaine 4 % Patch ADH..PATCH 1 PATCH TRANSDERMA (08:21)
--- NOTE | 2024-03-03 09:58 | P.PNPL_ITS ---
Subjective Subjective Date of Service: 03/03/24 Interval history: Respiratory status improved. CT scan shows trapped lung and improved, but still loculated left pleural effusion. Objective Data Labs 02/28/24 05:52 03/03/24 05:41 Labs: Laboratory Results - last 24 hr 03/03/24 05:41 Hold Purple Top SEE NOTE Sodium 135 Potassium 4.1 Chloride 100 Carbon Dioxide 28 Anion Gap 11 L BUN 11 Creatinine 0.88 Estim Creat Clear Calc 106.0 Estimated GFR > 60 Random Glucose 108 Calcium 9.3 Microbiology Microbiology Results: Microbiology 02/26/24 08:30 Thoracentesis Fluid Gram Stain - Final 02/26/24 08:30 Thoracentesis Fluid Anaerobic Culture - Final NO GROWTH AFTER 5 DAYS 02/26/24 08:30 Thoracentesis Fluid Body Fluid Culture - Final No growth after 2 days 02/29/24 09:28 Thoracentesis Fluid Gram Stain - Final 02/29/24 09:28 Thoracentesis Fluid Anaerobic Culture - Preliminary Culture in progress. 02/29/24 09:28 Thoracentesis Fluid Body Fluid Culture - Preliminary Culture in progress. 02/24/24 20:40 Blood - Venous Blood Culture - Final No growth after 5 days. 02/24/24 20:25 Blood - Venous Blood Culture - Final No growth after 5 days. Physical Exam 2 Vital Signs: Vital Signs: Last Vital Signs Temp 97.2 F 03/03/24 08:00 Pulse 80 03/03/24 08:00 Resp 20 03/03/24 08:00 BP 121/80 03/03/24 08:00 Pulse Ox 93 03/03/24 08:00 O2 Del Method Nasal Cannula 03/03/24 08:00 O2 Flow Rate 2 03/03/24 08:00 BMI result Body Mass Index 42.1 Const: General: no acute distress, alert and awake Eyes: Sclerae: sclerae normal EOM: EOMs intact bilaterally Neck: Neck: Yes no lymphadenopathy, Yes trachea midline and Yes supple Resp: Effort & Inspection: normal respiratory effort and no respiratory distress Auscultation: clear to auscultation bilaterally Cardio: Rate: regular rate Rhythm: regular rhythm Heart sounds: no gallops, no murmurs and no rubs GI: Palpation (GI): Soft to palpation and Other GI palpation findings present ( Nontender) Auscultation: normal bowel sounds Extrem: General: Yes no pedal edema, No clubbing and No cyanosis Procedures Date of Service Date of Service: 03/03/24 Assessment and Plan Assessment and plan (1) Loculated pleural effusion: Status: Acute (2) Parapneumonic effusion: Status: Acute (3) Acute respiratory failure with hypoxia: Status: Acute (4) Community acquired pneumonia: Status: Acute Plan Impression: 64-year-old gentleman with community-acquired pneumonia complicated by loculated parapneumonic effusion, improved, but not resolved after 3 days of tPA/DNase via chest tube. Recommendations: Continue empiric antibiotics. Thoracic surgery evaluation for possible decortication. Time Spent With Patient Time: Total time managing care of this patient today ____ minutes. Progress Note: Quality Stroke Does the patient have a stroke diagnosis?: No
[2024-03-03 12:00] VITALS: BP 129/80; PULSE 89; RESP 20; TEMP 36.3; O2SAT 94
--- NOTE | 2024-03-03 15:14 | P.PNIM_ITS ---
Subjective Subjective Date of Service: 03/03/24 Interval History: Feeling better using incentive spirometry, denies lightheadedness dizziness no shortness a breath oxygenation stable 97% on 2 L no acute events overnight. Denies fever, no chills, no cough or sputum production. Review of Systems All other system are reviewed and are negative. Physical Exam 2 Vital Signs: Vital Signs: Last Vital Signs Temp 97.3 F 03/03/24 12:00 Pulse 89 03/03/24 12:00 Resp 20 03/03/24 12:00 BP 129/80 03/03/24 12:00 Pulse Ox 94 03/03/24 12:00 O2 Del Method Room Air 03/03/24 12:00 O2 Flow Rate 2 03/03/24 08:00 BMI result Body Mass Index 42.1 Const: Other: Gen: Awake alert x3, in no acute distress HEENT: sclera anicteric, moist mucus membranes Neck: supple, no adenopathy Lungs: decreased air entry L lower lung, clear to auscultation right side Heart: regular rate and rhythm, no murmurs Abd: soft, non-tender, non-distended, obese Ext: no edema Skin: warm/well-perfused Neuro: alert and oriented x3, no focal findings Psych: appropriate affect Objective Data Active Medications Acetaminophen (Acetaminophen 325 Mg Tablet) 650 mg PO Q6H PRN PRN Reason: Pain, Mild (Pain Scale 1-3), fever or headache Last Admin: 03/03/24 10:39 Dose: 650 mg Documented By: ROMMEL Calcium Carbonate (Calcium Carbonate 750 Mg Tab.Chew) 750 mg PO Q4H PRN PRN Reason: Heartburn Enoxaparin Sodium (Enoxaparin Sodium 40 Mg/0.4 Ml Syringe) 40 mg SUBCUT Q24H [facility] Last Admin: 02/24/24 21:12 Dose: Not Given Documented By: VARUN Non-Admin Reason: Patient Refused Ceftriaxone Sodium 1 gm/ (Sodium Chloride) 50 mls @ 100 mls/hr IV Q24H [facility] Last Infusion: 03/02/24 22:26 Dose: Infused Documented By: TIANA Azithromycin 500 mg/ Sodium (Chloride) 250 mls @ 125 mls/hr IV Q24H [facility] Last Infusion: 03/03/24 00:37 Dose: Infused Documented By: TIANA Alteplase, Recombinant 10 mg/Dornase [place] 5 mg/ Lidocaine HCl 10 ml/ Sodium Chloride 50 mls @ 0 mls/hr INTRAPLEUR BID [facility] Stop: 03/06/24 09:01 Lidocaine (Lidocaine 4 % Patch Adh..Patch) 1 patch TRANSDERMA DAILY [facility]; Protocol Last Admin: 03/03/24 08:21 Dose: 1 patch Documented By: ROMMEL Magnesium Hydroxide (Milk Of Magnesia 30 Ml Oral.Susp) 30 ml PO DAILY PRN PRN Reason: Constipation Last Admin: 02/29/24 17:58 Dose: 30 ml Documented By: YONATHAN Melatonin (Melatonin 3 Mg Tablet) 6 mg PO BEDTIME PRN PRN Reason: Insomnia Last Admin: 03/01/24 23:36 Dose: 6 mg Documented By: LATHA Morphine Sulfate (Morphine Sulfate 2 Mg/Ml Cartridge) 2 mg IVPUSH Q3H PRN; Protocol PRN Reason: severe pain Last Admin: 02/29/24 13:41 Dose: 2 mg Documented By: YONATHAN Oxycodone HCl (Oxycodone Hcl Immed Release 5 Mg Tablet) 5 mg PO Q4H PRN PRN Reason: Pain, Moderate(Pain Scale 4-6) Last Admin: 03/03/24 10:41 Dose: 5 mg Documented By: ROMMEL Sodium Chloride (0.9 % Sodium Chloride Flush 3 Ml Syringe) 3 ml IVFLUSH QSHIFT [facility] Last Admin: 03/03/24 08:20 Dose: 3 ml Documented By: ROMMEL Labs 02/28/24 05:52 03/03/24 05:41 Labs: Laboratory Results - last 24 hr 03/03/24 05:41 Hold Purple Top SEE NOTE Anion Gap 11 L Estim Creat Clear Calc 106.0 Estimated GFR > 60 Random Glucose 108 Calcium 9.3 Microbiology Microbiology Results: Microbiology 02/29/24 09:28 Gram Stain - Final Thoracentesis Fluid Anaerobic Culture - Preliminary Culture in progress. Body Fluid Culture - Preliminary Culture in progress. 02/26/24 08:30 Gram Stain - Final Thoracentesis Fluid Anaerobic Culture - Final NO GROWTH AFTER 5 DAYS Body Fluid Culture - Final No growth after 2 days Assessment and Plan (1) Community acquired pneumonia: Status: Acute (2) Sepsis: Status: Acute Assessment and Plan: 63yo M with no chronic conditions presenting with dyspnea + pleuritic chest pain, found to have pneumonia + loculated pleural effusion Sepsis from pneumonia with loculated parapneumonic effusion -no recurrent fevers, normal WBC -on IV ceftriaxone + azithromycin started on 02/23, HIV negative; MRSA negative; urinary antigen for pneumococcus + Leginoella negative Will DC IV antibiotics after today's dose -thoracentesis done 02/24 with removal of 375 mL of straw-colored exudative fluid; CXR 02/27 showed pleural effusion reaccumulated and is loculated; Pulmonology, recommended chest tube with chemical decortication - chest tube placed 02/28 by Thoracic Surgery, intrapleural tPA and DNAse 02/28-03/02 administered by Pulmonology bid; Repeat CTA chest showed marked improved aeration of the left lung with persistent atelectasis and consolidation in the lingula, markedly decreased size of the loculated left pleural effusion small residual loculated fluid seen along the left major fissure, small anterior and apical pneumothorax seen. - blood culture + initial pleural fluid culture negative, repeat pleural fluid chemistry pending, culture in progress, cytology no malignancy identified. - continue lidocaine patch, Tylenol, oxycodone, dc IV morphine - will need PCP + Pulmonology follow-up upon discharge -case discussed with pulmonology they reviewed the CT scan and concern about trapped lung with still loculated left pleural effusion, will discuss with thoracic surgery for possible decortication. -wean oxygen as tolerated VTE ppx - LMWH dispo - eventual home In my clinical judgment, the patient requires continued inpatient hospitalization for the following reasons: IV ABX, chest tube with chemical decortication Total time managing care of this patient today: 40 minutes. Quality Stroke Does the patient have a stroke diagnosis?: No VTE Prior VTE?: No VTE Risk Level:: Medical - moderate - high VTE Device Contraindication: Treatment Not Indicated VTE Drug Contraindication: N/A - Med Ordered
[2024-03-03 16:00] VITALS: BP 127/74; PULSE 83; RESP 18; TEMP 36.7; O2SAT 94
[2024-03-03 20:00] VITALS: BP 144/74; PULSE 90; RESP 18; TEMP 37; O2SAT 96
[2024-03-03] MEDS: Alteplase Cath Clear 10 MG, Dornase Alfa 5 MG, Lidocaine HCl 2 % MPF 10 ML in 0.9 % Sod... 50 MG INTRAPLEUR (21:26)
[2024-03-03] MEDS: cefTRIAXone sodium 1 GM in 0.9 % Sodium Chloride 50 ML IV (21:38)
[2024-03-03] MEDS: Azithromycin 500 MG in 0.9 % Sodium Chloride 250 ML 125 MG IV (22:19)
[2024-03-03 23:21] VITALS: BP 130/76; PULSE 90; RESP 18; TEMP 36.3; O2SAT 95
[2024-03-04 04:00] VITALS: BP 117/67; PULSE 82; RESP 18; TEMP 36.8; O2SAT 96
[2024-03-04 07:26] VITALS: BP 135/85; PULSE 82; RESP 18; TEMP 36.8; O2SAT 92
--- NOTE | 2024-03-04 09:06 | MHC.CM.PN ---
Patient does not qualify for Home services ; because he does not have insurance or a PCP. Notified RN + PA. CM requested supplies and wound care demo for patient prior to discharge. DP Home self care. Patient will self transport home. [place] [facility]
--- NOTE | 2024-03-04 10:55 | P.CDIM_ITS ---
PROVIDER RESPONSE TEXT: To clarify, the appropriate diagnosis supported by the clinical indicators: Obesity Due to excess calories QUERY TEXT: PHYSICIAN'S DOCUMENTATION REQUEST Date of Query: 03/04/2024 08:23 AM EDT Patient Name: Bibi Bullard Admit Date: 02/25/2024 Dear Jono Condon, A review of the medical record indicates additional documentation may be needed. Please review below and update the documentation accordingly. Clinical Indicators: Height: ( ) 5'7 Weight: ( ) 121.9 kg BMI: ( ) 42.1 Other Clinical Notes Supporting Significance of the BMI: If possible, please provide an associated diagnosis related to the abnormal BMI, such as: Overweight Obesity Due to excess calories Obesity Drug induced Obesity Due to other cause Specify the other cause Severe or Morbid Obesity With alveolar hypoventilation Severe or Morbid Obesity Without alveolar hypoventilation BMI is not significant Other (explain) Clinically unable to determine (explain) Thank you, Verónica Ortiz RN Use of terms such as suspected, likely, concern for, or probable (associated with a specific diagnosi s that is being evaluated, monitored, or treated as if it exists) are acceptable and can be coded in the inpatient se tting, when documented at the time of discharge. Please use your independent medical judgment in providing your response. THIS QUERY IS PART OF THE PERMANENT MEDICAL RECORD
[2024-03-04] MEDS: oxyCODONE HCl Immed Release 5 MG TABLET PO (11:01)
[2024-03-04] MEDS: Acetaminophen 325 MG TABLET 650 MG PO (11:01)
[2024-03-04] MEDS: 0.9 % Sodium Chloride Flush 3 ML SYRINGE IVFLUSH (11:03)
--- NOTE | 2024-03-04 11:04 | PM.PNTS ---
Subjective Subjective Date of Service: 03/04/24 Interval history: Feels improved. Physical Exam Vital Signs: Vital Signs: Last Vital Signs Temp 98.2 F 03/04/24 07:26 Pulse 82 03/04/24 07:26 Resp 18 03/04/24 07:26 BP 135/85 03/04/24 07:26 Pulse Ox 92 03/04/24 07:26 O2 Del Method Room Air 03/04/24 07:26 O2 Flow Rate 2 03/03/24 08:00 BMI result Body Mass Index 42.1 Chest: Other: left chest tube in place pleurvac with decreasing serosanguineous output, no air leak Resp: Effort & Inspection: normal respiratory effort Skin: General skin exam: no rashes or lesions noted Procedures Date of Service Date of Service: 03/04/24 Progress Note: A&P Assessment and plan (1) Parapneumonic effusion: Status: Acute (2) Acute respiratory failure with hypoxia: Status: Acute Plan Continued improvement. F/u chest CT on 03/02 showed markedly improved aeration of the left lung and decreased size of the loculated left pleural effusion with small residual. His chest tube output has significantly decreased and is now minimal without air leak on exam this am. Chest tube removed uneventfully at bedside and occlusive dressing placed. Post procedure film in 1 hr. If unchanged, stable for dc w follow up in 1 week. Unfortunatley he has no insurance and no PCP and therefore unable to have VNA. He will f/u with RN from office for dressing changes every other day with xeroform and 4x4. Time Spent With Patient Time: Total time managing care of this patient today ____ minutes. Quality Stroke Does the patient have a stroke diagnosis?: No VTE Prior VTE?: No VTE Risk Level:: Medical - moderate - high VTE Device Contraindication: Treatment Not Indicated VTE Drug Contraindication: N/A - Med Ordered
[2024-03-04 11:20] LABS: pH Pleural Fluid 7.55
[2024-03-04 11:22] LABS: Albumin Pleural Fluid 3.2; LDH Pleural Fluid 1592; Total Protein Pleural Fluid 5.9
[2024-03-04 11:23] LABS: Amylase Pleural Fluid 37; Glucose Pleural Fluid 97
[2024-03-04 12:00] VITALS: BP 121/86; PULSE 82; RESP 16; TEMP 36.9; O2SAT 95
--- NOTE | 2024-03-04 14:05 | PM.DS ---
DS: Providers Provider Date of Service: 03/04/24 Date of admission: 02/24/24 20:24 Primary care physician: None Physician Consults: 02/25/24 10:22 Consult to Infectious Diseases Routine Consulting Provider: [facility] Reason for consultation: acute pneumonia, immigrated from [place] 02/28/24 11:28 Consult to Pulmonology Routine Consulting Provider: [facility] Pul[facility] Reason for consultation: Parapneumonic effusion 02/28/24 16:15 Consult to Thoracic Surgery Routine Consulting Provider: Bob Leo Reason for consultation: reaccumulated parapnuemonic effusion- loculated- chest tube placement DS: Diagnosis Discharge Diagnosis (1) Parapneumonic effusion: Status: Acute (2) Acute respiratory failure with hypoxia: Status: Acute DS: Summary Hospital Course Hospital Course: History of presenting illness: Date of Service: 02/24/24 Chief Complaint: Chest pain This is a 63-year-old male with no pertinent past medical history and not on prescription medications who presents to the emergency department for evaluation of dyspnea. Patient states his symptoms started 4 days ago. He has been having difficulty breathing which is worse with exertion. Also was having chest discomfort which is worse when he takes a deep breath. Minimal cough. No sick contacts. Also complains of fevers and chills. Patient states he has not on any prescription medications. No surgeries in the past. No orthopnea, PND or leg swelling. No history of blood clots in the past. He has a truck dispatcher. No nausea, vomiting, palpitations, abdominal pain, changes in urinary or bowel habits. In the emergency department, imaging with left-sided dense consolidation with left-sided pleural effusion. He was found to be septic and initiated on IV antibiotics. Hospital course: 63yo M with no chronic conditions presenting with dyspnea + pleuritic chest pain, found to have pneumonia + loculated pleural effusion, with sepsis, patient treated with IV ceftriaxone and IV azithromycin, analgesics, urinary antigen for pneumococcus and Legionella were negative blood cultures and pleural fluid cultures negative, cytology showed no malignancy, HIV, and MRSA negative, patient underwent thoracocentesis on February 24 with removal of 375 mL of straw-colored exudative fluid repeat chest x-ray showed reaccumulation of loculated pleural fluid , evaluated by pulmonology and underwent chest tube placement with chemical decortication on 02/28 repeat CTA showed marked improved aeration of left lung with persistent atelectasis and consolidation in the lingula, markedly decreased size of loculated left pleural effusion, small residual loculated fluid seen along the left major fissure and small apical pneumothorax, patient was followed closely by thoracic surgery, since patient clinically looks stable with no hypoxia, therefore thoracic surgery recommend outpatient follow-up with them in 1 week . Patient has no PCP recommend to arrange for PCP, patient will have dressing change at General surgery office every other day, he is recommended to use Tylenol for pain. Morbid obesity BMI greater than 42 recommend low-calorie diet. Time Attestation Discharge Coordination Time (in mins): 40 Quality: Safe Use of Opioids Does Pt have an Active Cancer Diagnosis on the Problem List?: No Quality: Stroke Does the patient have a stroke diagnosis?: No Physical Exam Vital Signs: Vital Signs: Last Vital Signs Temp 98.4 F 03/04/24 12:00 Pulse 82 03/04/24 12:00 Resp 16 03/04/24 12:00 BP 121/86 03/04/24 12:00 Pulse Ox 95 03/04/24 12:00 O2 Del Method Room Air 03/04/24 12:00 O2 Flow Rate 2 03/03/24 08:00 BMI result Body Mass Index 42.1 Const: Other: Gen: Awake alert x3, in no acute distress HEENT: sclera anicteric, moist mucus membranes Neck: supple, no adenopathy Lungs: Decreased breath sounds left base otherwise clear to auscultation/dressing at chest tube site. Heart: regular rate and rhythm, no murmurs Abd: soft, non-tender, non-distended, obese Ext: no edema Skin: warm/well-perfused Neuro: alert and oriented x3, no focal findings Psych: appropriate affect DS: Data Data Completed and Pending Completed studies during hospitalization [Text1]: Pending at discharge 02/25/24 13:36 Cytology [PTH] Routine 02/28/24 12:01 Cytology [PTH] Urgent Labs on day of discharge: Laboratory Results - last 24 hr 02/29/24 09:28 Pleural pH 7.55 Pleural Total Protein 5.9 Pleural Albumin 3.2 Pleural LDH 1592 Pleural Glucose 97 Pleural Amylase 37 Preliminary micro results at discharge 02/29/24 09:28 Anaerobic Culture - Preliminary Thoracentesis Fluid No growth to date. Discharge Plan Discharge Anticipated Discharge Date/Time: 03/04/24 14:00 Patient Disposition: Home, Self-Care Discharge Diagnosis: pneumonia with pleural effusion Referrals: Physician,None [Primary Care Provider] - 1 Week Bob Leo MD [Physician] - 1 Week Discharge Medications: New acetaminophen 325 mg Tablet 650 mg PO Q6H PRN (Reason: Pain, Mild (Pain Scale 1-3), fever or headache) Qty: 30 0RF Discharge Orders: Discharge Order (Routine); Ordered 03/04/24 Ordered By: Jono Condon Diet: Advance to usual diet Activity on Discharge: As tolerated Stand Alone Forms: Patient Portal Discharge page Print Language: German Activity Restrictions/Additional Instructions: Appt with General Surgery RN (Loi) 03/06/24 at 10am for dressing change. Care Plan Goals: Finished course of antibiotic no further antibiotic needed Health Concerns: pneumonia with pleural effusion Plan of Treatment: for mild pain, take acetaminophen [Tylenol]; Follow-up with general surgery in [address] Leo, call for appointment, follow up with RN from general surgery office for dressing changes every other day with Xeroform and 4x4 establish primary care as soon as possible Assessment: As above Patient Instructions: Community Acquired Pneumonia (GEN), Thoracentesis (GEN), Chest Tubes (GEN)
[2024-03-04 15:11] VITALS: BP 121/68; PULSE 86; RESP 17; TEMP 36.7; O2SAT 95
== END 2024-03-04 15:52 | disposition home or self-care (01) | DRG 720 ==
LOC: HO.ED 20:24 → HO.EDOVER 20:27 → HO.S3 02-25 00:38
PROVIDERS: Family Medicine; Physician Assistant Medical; Admitting Provider Student in an Organized Health Care Education/Training Program; Emergency Provider Emergency Medicine; Visit Provider Hospitalist
DX: A41.9 Sepsis, unspecified organism (principal); J96.01 Acute respiratory failure with hypoxia; J18.9 Pneumonia, unspecified organism; J98.11 Atelectasis; E66.01 Morbid (severe) obesity due to excess calories; J91.8 Pleural effusion in other conditions classified elsewhere; Z68.41 Body mass index [BMI] 40.0-44.9, adult; Z20.822 Contact with and (suspected) exposure to COVID-19
CPT/HCPCS: 0241U; 32555; 36415; 71045; 71046; 71048; 71250; 71260; 71270; 80048; 80053; 80076; 82042; 82150; 82945; 83605; 83615; 83735; 83986; 84145; 84157; 84484; 85025; 85027; 85379; 85610; 85730; 87040; 87070; 87073; 87116; 87205; 87206; 87389; 87449; 87640; 87641; 87899; 88112; 88305; 89051; 93005; 94640; 99285; C1729; J0456; J0696; J1170; J1885; J2270; J2997; Q9967

== ENCOUNTER → 2024-02-24 13:44 | Outpatient (BNV) | payer SELFPAY | PROVIDERS: Admitting Provider Student in an Organized Health Care Education/Training Program; Emergency Provider Emergency Medicine; Visit Provider Internal Medicine | DX: R07.9 Chest pain, unspecified (principal); R94.31 Abnormal electrocardiogram [ECG] [EKG] | CPT/HCPCS: 93010 ==

== ENCOUNTER 2024-02-24 20:24 | Outpatient (BNV) | payer MEDICAID, SELFPAY | END 2024-02-26 08:30 | PROVIDERS: Admitting Provider Student in an Organized Health Care Education/Training Program; Emergency Provider Emergency Medicine; Visit Provider Physician Assistant Surgical | DX: J90 Pleural effusion, not elsewhere classified (principal) | CPT/HCPCS: 32555 ==

== ENCOUNTER → 2024-02-24 20:24 | Outpatient (BNV) | payer MEDICAID, SELFPAY | PROVIDERS: Admitting Provider Student in an Organized Health Care Education/Training Program; Emergency Provider Emergency Medicine; Visit Provider Surgery | DX: J90 Pleural effusion, not elsewhere classified (principal); J18.9 Pneumonia, unspecified organism; J91.8 Pleural effusion in other conditions classified elsewhere; J96.01 Acute respiratory failure with hypoxia; A41.9 Sepsis, unspecified organism | CPT/HCPCS: 32551; 99223; 99232 ==

== ENCOUNTER → 2024-02-24 20:24 | Outpatient (BNV) | payer SELFPAY | PROVIDERS: Admitting Provider Student in an Organized Health Care Education/Training Program; Emergency Provider Emergency Medicine; Visit Provider Internal Medicine Pulmonary Disease | DX: J90 Pleural effusion, not elsewhere classified (principal); J18.9 Pneumonia, unspecified organism; J91.8 Pleural effusion in other conditions classified elsewhere; J96.01 Acute respiratory failure with hypoxia | CPT/HCPCS: 99222; 99232 ==

== ENCOUNTER → 2024-02-24 20:24 | Outpatient (BNV) | payer SELFPAY | PROVIDERS: Admitting Provider Student in an Organized Health Care Education/Training Program; Emergency Provider Emergency Medicine; Visit Provider Internal Medicine | DX: A41.9 Sepsis, unspecified organism (principal); J18.9 Pneumonia, unspecified organism | CPT/HCPCS: 99222 ==

== ENCOUNTER → 2024-02-24 20:24 | Outpatient (BNV) | payer SELFPAY | PROVIDERS: Admitting Provider Student in an Organized Health Care Education/Training Program; Emergency Provider Emergency Medicine; Visit Provider Student in an Organized Health Care Education/Training Program | DX: J18.9 Pneumonia, unspecified organism (principal); A41.9 Sepsis, unspecified organism | CPT/HCPCS: 99222; 99232; 99233; 99239 ==

== ENCOUNTER 2024-03-06 09:50 | Emergency (ER) | payer MEDICAID, SELFPAY ==
[2024-03-06 09:56] VITALS: BP 141/72; PULSE 87; RESP 20; TEMP 36.2; O2SAT 97; BMI 40.4
--- NOTE | 2024-03-06 10:18 | ED.GENADULT ---
HPI - General Adult General Chief complaint: Wound/Laceration Stated complaint: Wound Check Time Seen by Provider: 03/06/24 10:15 Source: patient Mode of arrival: ambulatory Limitations: no limitations History of Present Illness ED Provider: Alee Springer PA-C HPI narrative: Patient is a 64 year old assigned male at with a history of recent hospitalization and chest tube removal presenting to the emergency department today for a wound check. Patient states that he was recently admitted and had to have a chest tube placed. Patient states that the chest tube was removed and he was told to come back here for a dressing change of where the chest tube was in his left side. Patient denies any dizziness, lightheadedness, abdominal pain, nausea, vomiting, fever, chills, blurry vision, double vision, loss of vision, chest pain, difficulty breathing, shortness of breath, back pain, night sweats, pain with urination, increased urinary frequency, increased urinary urgency, blood in his urine or stool, syncope or a near syncopal episode, bowel incontinence, bladder incontinence, or any other complaints at this time. Relieving factors: none Exacerbating factors: none Associated symptoms: denies other symptoms Treatments prior to arrival: none Related Data Previous Rx's ?Medication ?Instructions ?Recorded acetaminophen 325 mg tablet 650 mg (2 x 325 mg) PO Q6H PRN 02/28/24 Pain, Mild (Pain Scale 1-3), fever or headache #30 tabs Allergies Allergy/AdvReac Type Severity Reaction Status Date / Time No Known Allergies Allergy Verified 03/06/24 10:00 [No Known Allergies*] Review of Systems Constitutional: Constitutional: Reports no additional constitutional complaints, Denies chills, Denies fever(s) and Denies night sweats Eyes: Eyes: Reports no additional eye complaints, Denies blurry vision, Denies change in vision, Denies diplopia, Denies eye discharge, Denies loss of vision and Denies eye pain ENT: Denies dizziness Cardiovascular: Cardiovascular: Reports no additional cardiovascular complaints, Denies chest pain, Denies lightheadedness, Denies Loss of Consciousness and Denies dyspnea Respiratory: Respiratory: Reports no additional respiratory complaints and Denies dyspnea Gastrointestinal: Gastrointestinal: Reports no additional gastrointestinal complaints, Denies abdominal pain, Denies melena, Denies hematochezia, Denies change in bowel habits and Denies change in stool character Genitourinary: Genitourinary: Reports no additional male genitourinary complaints, Denies hematuria, Denies oliguria, Denies difficulty urinating, Denies dysuria, Denies urinary frequency, Denies urinary hesitancy, Denies urinary incontinence and Denies urinary urgency Musculoskeletal: Musculoskeletal: Reports no additional musculoskeletal complaints, Denies numbness and Denies tingling Comments: wound to left chest wall Neurologic: Denies dizziness, Denies loss of vision, Denies numbness and Denies tingling Psychiatric: Psychiatric: Reports no additional psychiatric complaints Endocrine: Endocrine: Reports no additional endocrine complaints Hematologic/Lymphatic: Hematologic/Lymphatic: Reports no additional hematologic/lymphatic complaints Allergic/Immunologic: Allergic/Immunologic: Reports no additional allergic/immunologic complaints PMFSH Past Medical History Attestation statement: The following information was validated with the patient. Source: old records reviewed and nursing notes reviewed Medical History No known health problems Social History Social History Household Members: None Housing: Apartment Do you presently have visiting nurse or other home services: No Patient Tobacco Use Status: Never used Tobacco service: No Physical Exam ED Vital Signs: Vital Signs - 24 hr 03/06/24 09:56 03/06/24 10:45 Temperature 97.2 F 97.2 F Pulse Rate 87 87 Respiratory Rate 20 20 Blood Pressure 141/72 H 141/72 H Pulse Oximetry 97 97 Oxygen Delivery Method Room Air Room Air BMI result Body Mass Index 40.4 Const General: cooperative, no acute distress, alert and awake Nutritional Appearance: well nourished Orientation/consciousness: patient oriented x3 Limitations: no limitations [facility] Head: Yes normal to inspection and Yes atraumatic Ears: hearing grossly normal bilaterally and external ears normal General nose exam: Normal external nose present, no nasal discharge noted and no epistaxis Face and sinus: Yes normal facial exam, No abrasion and No laceration Mouth: Normal oral and palatal mucosa present, no drooling and no muffled voice Eyes General: appearance normal, both eyes and all related structures Periorbital: periorbital findings normal Eyelids: Yes eyelids normal Conjunctivae: conjunctivae normal Pupils: Equal, round and reactive pupils present EOM: EOMs intact bilaterally Neck Neck: Yes normal visual inspection, Yes full ROM and Yes no lymphadenopathy Chest Other: large dressing present over the lateral left chest wall - dressing appears clean Resp Effort & Inspection: normal respiratory effort and able to speak in complete sentences GI Inspection: Yes normal to inspection Neuro General: patient oriented x3 and moves all extremities Cranial nerves: Yes Equal, round and reactive pupils present Cognition (Neuro): normal cognition Extrem General: Yes normal to inspection, Yes full ROM and Yes capillary refill normal Psych Appearance: grossly normal Mental Status: mental status grossly normal Affect: normal affect Attitude: cooperative Thought process: Normal thought process present Thought content: Normal thought content present Insight: Good insight present (Psych) Medical Decision Making Medical Decision Making MDM Narrative: Patient is a 64 year old assigned male at with a history of recent hospitalization and chest tube placement presenting to the emergency department today for a dressing change. Patient's physical exam was as noted in the physical exam portion of this note. I spoke to the general surgery team who explained the patient was scheduled for an office visit with them and somehow ended up in the ER. Surgical team recommended discharge and having him proceed to their office. I explained my physical exam findings to the patient. I answered all questions asked by the patient. I stressed the importance of the patient taking his medication as directed (either prescribed or as the over the counter packaging recommends). I stressed the importance of the patient following up with his primary care provider and the general surgery team. I stressed the importance of the patient returning to the emergency department immediately if his symptoms were to worsen or if he were to develop any dizziness, shortness of breath, difficulty breathing, chest pain, blurry vision, loss of vision, nausea, vomiting, abdominal pain, fever, chills, back pain, or any other complaints. Patient verbalized agreement and understanding with this treatment plan and discharge. Differential Diagnosis Differential Diagnoses: The differential diagnosis associated with the presentation includes Dressing change Wound check Admission/Observation Consideration of admission/observation: Escalation of care including admission/observation considered Patient would have been admitted to the hospital had his clinical presentation warranted hospital admission. Consult Healthcare Provider Management of the patient was discussed with: Active Directory Specialist (spoke to the surgical team as noted in the MDM Rationale portion of this note.) Discharge Plan Discharge Clinical Impression: Visit for wound check Patient Disposition: Home, Self-Care Additional Instructions: Go up to the general surgery office. Follow up with your primary care provider and your general surgeon. Return to the emergency department immediately if you develop any dizziness, shortness of breath, difficulty breathing, chest pain, blurry vision, loss of vision, nausea, vomiting, abdominal pain, fever, chills, back pain, or any other complaints. Prescriptions: No Action acetaminophen 325 mg Tablet 650 mg PO Q6H PRN (Reason: Pain, Mild (Pain Scale 1-3), fever or headache) Qty: 30 0RF [place] [facility] [place] [Provider Group] Lorene Guzman MD [Primary Care Provider] - Interventions: ED Discharge Assessment Last Done: 03/06/24 10:45 Discharge Date/Time: 03/06/24 10:46 Print Language: Syriac
[2024-03-06 10:45] VITALS: BP 141/72; PULSE 87; RESP 20; TEMP 36.2; O2SAT 97
== END 2024-03-06 10:46 | disposition home or self-care (01) ==
PROVIDERS: Emergency Provider Emergency Medicine; PCP Internal Medicine
DX: Z48.01 Encounter for change or removal of surgical wound dressing (principal); Z93.8 Other artificial opening status
CPT/HCPCS: 99211; 99282

== ENCOUNTER → 2024-03-09 10:22 | Outpatient (BNVA) | payer MEDICAID, SELFPAY | PROVIDERS: PCP Internal Medicine; Visit Provider Surgery | DX: J90 Pleural effusion, not elsewhere classified (principal) | CPT/HCPCS: 99211 ==

== ENCOUNTER 2024-03-11 08:14 | Outpatient (REF) | payer MEDICAID, SELFPAY ==
--- NOTE | ~2024-03-11 | XR_ITS ---
EXAMINATION: XR chest 2V CLINICAL INFORMATION: Reason for Exam J90 - Pleural effusion, not elsewhere classified COMPARISON: 03/04/2024 TECHNIQUE: XR chest 2V, 2 Views Lungs and [place]re[place]: Redemonstration of infiltrate and/or atelectasis at left lung base. Pleura: Decreased left pleural effusion. Heart: The heart is normal in size. Mediastinum: The mediastinum is within normal limits.. Bones: Skeletal structures included are normal for patient's age. XR/XR chest 2V IMPRESSION: * Decreased left pleural effusion. * Redemonstration of opacity likely infiltrate and/or atelectasis at left lung base, follow-up recommended to ensure complete clearance and exclude underlying pathology..
== END 2024-03-11 08:15 | disposition home or self-care (01) ==
LOC: HO.XRAY 08:14
PROVIDERS: PCP Internal Medicine; Visit Provider Surgery
DX: J90 Pleural effusion, not elsewhere classified (principal); J18.9 Pneumonia, unspecified organism; J91.8 Pleural effusion in other conditions classified elsewhere; Z93.8 Other artificial opening status
CPT/HCPCS: 71046; 99212

== ENCOUNTER 2024-03-11 08:14 | Outpatient (AMB) | payer MEDICAID, SELFPAY ==
--- NOTE | 2024-03-11 08:41 | MHC.OFFVIS ---
Intake Visit Reasons: Wound Check Allergies No Known Allergies [No Known Allergies*] Allergy (Verified 03/06/24 10:00) HPI Comments Details: Patient presents for follow-up. Status post recent hospitalization for parapneumonic effusion drained by chest tube. He has been undergoing local wound care by [facility] in our office for as chest tube site. Patient looks quite good in comparison to his recent hospitalization. He has no respiratory issues or complaints. No chest tube site issues. [facility] Medical History No known health problems Social History Household Members: None Housing: Apartment Do you presently have visiting nurse or other home services: No Patient Tobacco Use Status: Never used Tobacco service: No Physical Exam Chest Other: Chest breath sounds bilaterally, diminished left base. Chest tube site clean dry and intact healing uneventfully. Suture uneventfully removed and dressing applied Assessment & Plan Assessment & Plan (1) Loculated pleural effusion: Code(s): J90 - Pleural effusion, not elsewhere classified Category: Surgical (2) Parapneumonic effusion: Code(s): J18.9 - Pneumonia, unspecified organism; J91.8 - Pleural effusion in other conditions classified elsewhere Category: Surgical (3) Status post chest tube placement: Code(s): Z93.8 - Other artificial opening status Category: Medical Plan Patient is tentatively scheduled for chest x-ray follow-up for later today. Should there be any issues regarding this he will be contacted. Otherwise patient will follow-up p.r.n.. All questions answered. Coding Level of Care Code Est Pt Level 4 (93721) Diagnoses Loculated pleural effusion J90 Parapneumonic effusion J18.9; J91.8 Status post chest tube placement Z93.8
== END 2024-03-11 08:32 | disposition home or self-care (01) ==
PROVIDERS: PCP Internal Medicine; Visit Provider Surgery
DX: J90 Pleural effusion, not elsewhere classified (principal); J18.9 Pneumonia, unspecified organism; J91.8 Pleural effusion in other conditions classified elsewhere; Z93.8 Other artificial opening status
CPT/HCPCS: 99213